=== PATIENT | female | born 1985 | race Caucasian/White ===

== ENCOUNTER 2016-09-14 09:10 | Emergency (ER) | payer SELFPAY ==
[~2016-09-14] VITALS: Ht 170.2 cm; Wt 114.7 kg
--- OUTSIDE RECORDS SUMMARY | 2016-09-14 09:14 | XMS REPORT | Continuity of Care Document ---
Author Author [facility] Organization [facility] Address Unknown Phone Unavailable Care Team Providers Care Wireless Architect Name Role Phone DILLON WALTER M.D. Primary Care Physician [phone] Advance Directives Directive Response Recorded Date/Time Patient Resuscitation Status Full Code 09/21/14 3:08am Problems No known problems or medical conditions. Medications Medication Dose Route Sig Days/Qty Instructions Order Date Discontinued Date Status [None] 11/11/12 Active Sulfamethoxazole-Trimethoprim 1 Tab PO TWICE A DAY 14 Qty 11/11/12 Discontinued Oxycodone/Acetaminophen 1 Tab PO Every 6 hours as needed 10 Qty for pain 11/11/12 11/27/13 Discontinued Ferrous Sulfate 325 Mg PO TWICE A DAY For Anemia 09/24/14 Active Ibuprofen 800 Mg PO Every 8 hours as needed For Pain 09/24/14 Active Oxycodone/Acetaminophen 1-2 Ea PO Q4-6HRPRN For Pain 50 Qty 09/24/14 Active Phenytoin Sodium 100 Mg PO BEDTIME For Not specified 09/24/14 Active Social History Social History Problem Response Recorded Date/Time Hx Alcohol Use Yes 09/23/2014 8:27am Smoking Status Current every day smoker 09/23/2014 11:28am Query Response Start Date Stop Date Smoking Status Current every day smoker Hospital Discharge Instructions No hospital discharge instructions. Plan of Care Discharge Date 09/24/14 11:40am Disposition 01 HOME, SELF-CARE Instructions/Education Provided OBG C-Sec Prescriptions See Medications Section Functional Status Query Response Date Recorded Toileting Ability/Staff Support Independ/No setup help September 24, 2014 8:37am Oral Care Ability/Staff Support Independ/No setup help September 24, 2014 8:37am Upper Body Dressing Ability/Staff Support Independ/No setup help September 24, 2014 8:37am Lower Body Dressing Ability/Staff Support Independ/No setup help September 24, 2014 8:37am Allergies, Adverse Reactions, Alerts Allergen Type Severity Reaction Status Last Updated Codeine Adverse Reaction Unknown Nausea/Vomiting Active 05/06/14 Morphine Allergy Unknown Active 05/06/14 Latex Allergy Mild ITCHES, VALDEZ, BREAKSOUT Active 05/06/14 Immunizations Name Given Type Hx Pneumococcal Vaccination Yes Historical Pneumonia Vaccine Received No Historical MMR 09/21/14 Administered Tdap 09/23/14 Administered pneumococcal polysaccharide PPV23 09/23/14 Administered Vital Signs Acute Vital Signs Vital Response Date/Time Blood Pressure 120/82 mm Hg Blood Pressure Mean 93 mm Hg Blood Pressure Mean 95 mm Hg Temperature (Fahrenheit) 97.8 degrees F (96.0 - 99.9) Temperature (Calculated Celsius) 36.86651 degrees C Temperature (Calculated Celsius) 36.75003 degrees C (36.4 - 37.5) Temperature (Fahrenheit) 97.9 degrees F (96.0 - 99.9) Temperature Source Oral Temperature Source Pulse Pulse Rate (adult) 99 bpm (60 - 100) Pulse Rate (adult) 89 bpm (60 - 100) Pulse Pulse Rate: ED 129 bpm Respiratory Rate 18 breaths per minute (10 - 20) Respiratory Rate 18 bpm (10 - 20) Height (Feet) 5 ft Height (Inches) 6.0 in. Weight (Pounds) 246.0 lbs Height 5 ft 6 in Weight 246 lb Body Mass Index 39.7 kg/m^2 Results Test Source Date Result Interp. Ref. Range Comments Alanine Aminotransferase (ALT/SGPT) September 21, 2014 11:49am 21 U/L N 5- 40 COMMENTS? draw with CBC Albumin September 21, 2014 11:49am 1.8 gm/dL L 3.2-5.0 COMMENTS? draw with CBC Albumin/Globulin Ratio September 21, 2014 11:49am 0.5 L 1.4-2.4 COMMENTS? draw with CBC Alkaline Phosphatase September 21, 2014 11:49am 150 U/L H 35-125 COMMENTS? draw with CBC Amphetamine Level September 20, 2014 5:30pm See separate report Amylase Level May 03, 2005 3:00pm 59 U/L N 37-127 COMMENTS? ROOM 4 Anion Gap September 21, 2014 11:49am 11.1 N 6-13 COMMENTS? draw with CBC Aspartate Amino Transf (AST/SGOT) September 21, 2014 11:49am 26 U/L N 5-40 COMMENTS? draw with CBC BUN/Creatinine Ratio September 21, 2014 11:49am 18.5 COMMENTS? draw with CBC Band Neutrophils September 20, 2014 11:05pm 5.0 % N 0-7 Barbiturates (GC/MS) September 20, 2014 5:30pm See separate report Basophils # (Auto) September 23, 2014 5:40am 0-0.2 Basophils (%) (Auto) September 23, 2014 5:40am 0-1 Basophils (Manual) September 23, 2014 5:40am 2.0 % H 0-1 Benzodiazepines (GC/MS) September 20, 2014 5:30pm See separate report Benzodiazepines Screen February 05, 2009 8:15pm Positive NEGATIVE COMMENTS ROOM 8 Bleeding Time September 14, 2014 1:00pm 7.0 MIN N 0-9 Blood Urea Nitrogen September 21, 2014 11:49am 12 mg/dL N 8-25 COMMENTS? draw with CBC Calcium Level September 21, 2014 11:49am 8.3 mg/dL N 8.2-10.6 COMMENTS? draw with CBC Carbon Dioxide Level September 21, 2014 11:49am 21 mEq/L L 22-34 COMMENTS? draw with CBC Carboxy THC (GC/MS) September 20, 2014 5:30pm See separate report Chlamydia/GC Amplified DNA February 05, 2009 8:21pm See separate report COMMENTS ROOM 8 Chloride Level September 21, 2014 11:49am 103 mEq/L N 98-116 COMMENTS? draw with CBC Cocaine & Metabolite Level September 20, 2014 5:30pm See separate report Cocaine Screen February 05, 2009 8:15pm Negative NEGATIVE COMMENTS ROOM 8 Creatinine September 21, 2014 11:49am 0.65 mg/dL L 0.9-1.6 COMMENTS? draw with CBC Drug Screen (T) February 05, 2009 8:15pm Positive NEGATIVE COMMENTS ROOM 8 Drug Screen Company Name September 20, 2014 5:30pm See separate report Drug Screen Social Security Number September 20, 2014 5:30pm See separate report Eosinophils # (Auto) September 23, 2014 5:40am 0-0.8 Eosinophils (%) (Auto) September 23, 2014 5:40am 0-7.0 Eosinophils (Manual) September 23, 2014 5:40am 2.0 % N 0-7.0 Fasting Glucose September 14, 2014 1:00pm 0 102 Globulin September 21, 2014 11:49am 3.8 gm/dL H 2.0-3.0 COMMENTS? draw with CBC Glomerular Filtration Rate Calc September 21, 2014 11:49am > 60.00 mL/min MULTIPLY RESULT BY 1.210 IF THE PATIENT IS -AMERICANUnits are mL/min/ 1.73 m2 > 60 Normal kidney function 30-59 Moderately decreased kidney function 15-29 Severely decreased kidney function <15 End-stage kidney failure Glucose 1 Hour September 14, 2014 1:00pm 5100 126 Hematocrit September 24, 2014 6:45am 23.2 % L 38.0-47.0 Hemoglobin September 24, 2014 6:45am 7.9 g/dL L 12.0-16.0 Hepatitis C RNA (DNA PCR) September 14, 2014 1:00pm 314266 IU/mL () Hepatitis C RNA (PCR) log10 September 14, 2014 1:00pm 5.5 () This test is for monitoring of HCV positive patients only andshould not be used as a screening test for HCV infection. Hepatitis C RNA performed at [facility], [address] [place] [id number] Lithographed Plate Inspector Quinton Charles, DO Heroin Level September 20, 2014 5:30pm See separate report Human Chorionic Gonadotropin, Qual March 18, 2008 7:47pm Negative NEGATIVE COMMENTS? Immature Blood Cells February 05, 2009 8:13pm 0.2 X10.e3/U N 0-0.4 COMMENTS PLEASE DRAW Immature Granulocyte # (Auto) September 23, 2014 5:40am 0-0.40 Immature Granulocyte % (Auto) September 23, 2014 5:40am 0-0.5 Lab Scanned Report September 23, 2014 8:21am REFERENCE LAB REPORT Lipase May 03, 2005 3:00pm 16 U/L N 8-57 COMMENTS? ROOM 4 Lymphocytes # (Auto) September 23, 2014 5:40am 0.9-5.2 Lymphocytes (%) (Auto) September 23, 2014 5:40am 16.0-44.0 Lymphocytes (Manual) September 23, 2014 5:40am 19.0 % L 21.0-51.0 Mean Corpuscular Hemoglobin September 23, 2014 5:40am 28.5 pg N 26.0-33.0 Mean Corpuscular Hemoglobin Concent September 23, 2014 5:40am 33.2 g/dL N 31.0-36.0 Mean Corpuscular Volume September 23, 2014 5:40am 85.8 fL N 82.0-100.0 Mean Platelet Volume September 23, 2014 5:40am 9.7 fL N 7.0-11.0 Metamyelocytes September 20, 2014 11:05pm 1.0 % Monocytes # (Auto) September 23, 2014 5:40am 0.16-1.0 Monocytes (%) (Auto) September 23, 2014 5:40am 2.0-9.0 Monocytes (Manual) September 23, 2014 5:40am 3.0 % N 2.0-9.0 Neutrophils September 23, 2014 5:40am 74.0 % N 42.0-75.0 Neutrophils # (Auto) September 23, 2014 5:40am 1.9-8.0 Neutrophils (%) (Auto) September 23, 2014 5:40am 42.0-75.0 Nucleated Red Blood Cells # September 23, 2014 5:40am 0.00 K/uL N 0.0-0.012 Nucleated Red Blood Cells % September 23, 2014 5:40am 0-0 Opiates (GC/MS) September 20, 2014 5:30pm See separate report Phencyclidine (PCP) Level September 20, 2014 5:30pm See separate report Platelet Count September 23, 2014 5:40am 325 K/uL N 130-400 Platelet Estimate September 23, 2014 5:40am Normal NORMAL Potassium Level September 21, 2014 11:49am 4.1 mEq/L N 3.5-5.1 COMMENTS? draw with CBC RDW Standard Deviation September 23, 2014 5:40am 43.8 fL N 36.4-46.3 Random Glucose September 21, 2014 11:49am 90 mg/dL N 65-115 COMMENTS? draw with CBC Red Blood Count September 23, 2014 5:40am 2.74 M/uL L 4.20-5.40 Red Cell Distribution Width September 23, 2014 5:40am 14.1 % N 11.5-14.5 Sodium Level September 21, 2014 11:49am 131 mEq/L L 133-145 COMMENTS? draw with CBC Total Bilirubin September 21, 2014 11:49am 0.7 mg/dL N 0.1-1.3 COMMENTS? draw with CBC Total Protein September 21, 2014 11:49am 5.6 gm/dL L 6.0-8.4 COMMENTS? draw with CBC Toxic Vacuolation September 20, 2014 11:05pm Ur Tetrahydrocannabinol (THC) Scrn September 20, 2014 11:00pm Negative NEGATIVE HAS SPECIMEN BEEN OBTAINED/COLLECTED? Y Ur Tricyclic Antidepressants Screen September 20, 2014 11:00pm Positive NEGATIVE HAS SPECIMEN BEEN OBTAINED/COLLECTED? Y Urine Amorphous Sediment April 02, 2006 10:00pm Trace COMMENTS? RM 6 Urine Amphetamines Screen September 20, 2014 11:00pm Negative NEGATIVE HAS SPECIMEN BEEN OBTAINED/COLLECTED? Y Urine Appearance September 20, 2014 11:00pm Clear HAS SPECIMEN BEEN OBTAINED/COLLECTED? Y Urine Bacteria September 20, 2014 6:30pm Trace /hpf H NONE SOURCE: URINE, CLEAN CATCHHAS SPECIMEN BEEN OBTAINED/COLLECTED? Y Urine Barbiturates February 05, 2009 8:15pm Positive NEGATIVE COMMENTS ROOM 8 Urine Barbiturates Screen September 20, 2014 11:00pm Negative NEGATIVE HAS SPECIMEN BEEN OBTAINED/COLLECTED? Y Urine Benzodiazepines Screen September 20, 2014 11:00pm Positive NEGATIVE HAS SPECIMEN BEEN OBTAINED/COLLECTED? Y Urine Bilirubin September 20, 2014 11:00pm Negative NEGATIVE HAS SPECIMEN BEEN OBTAINED/COLLECTED? Y Urine Cannabinoids February 05, 2009 8:15pm Negative NEGATIVE COMMENTS ROOM 8 Urine Cocaine Screen September 20, 2014 11:00pm Negative NEGATIVE HAS SPECIMEN BEEN OBTAINED/COLLECTED? Y Urine Color September 20, 2014 11:00pm Yellow HAS SPECIMEN BEEN OBTAINED/COLLECTED? Y Urine Drug Screen Confirmation February 05, 2009 12:00am See separate report Urine Drug Screen Other September 20, 2014 5:30pm See separate report Urine Drug Screen Reason September 20, 2014 5:30pm See separate report Urine Epithelial Cells September 20, 2014 6:30pm Few /lpf SOURCE: URINE , CLEAN CATCHHAS SPECIMEN BEEN OBTAINED/COLLECTED? Y Urine Glucose (UA) September 20, 2014 11:00pm Negative NEGATIVE HAS SPECIMEN BEEN OBTAINED/COLLECTED? Y Urine Human Chorionic Gonadotropin October 31, 2009 1:30pm Positive NEG ROOM/COMMENTS ROOM 8 Urine Ketones September 20, 2014 11:00pm Negative NEGATIVE HAS SPECIMEN BEEN OBTAINED/COLLECTED? Y Urine Leukocyte Esterase September 20, 2014 11:00pm Negative NEGATIVE HAS SPECIMEN BEEN OBTAINED/COLLECTED? Y Urine Methadone Screen September 20, 2014 11:00pm Negative NEGATIVE HAS SPECIMEN BEEN OBTAINED/COLLECTED? Y Urine Methamphetamines Screen September 20, 2014 11:00pm Negative NEGATIVE HAS SPECIMEN BEEN OBTAINED/COLLECTED? Y Urine Mucus April 02, 2006 10:00pm 1+ NEGATIVE COMMENTS?RM 6 Urine Nitrate September 20, 2014 11:00pm Negative NEGATIVE HAS SPECIMEN BEEN OBTAINED/COLLECTED? Y Urine Occult Blood September 20, 2014 11:00pm Negative NEGATIVE HAS SPECIMEN BEEN OBTAINED/COLLECTED? Y Urine Opiates Screen September 20, 2014 11:00pm Negative NEGATIVE HAS SPECIMEN BEEN OBTAINED/COLLECTED? Y Urine Phencyclidine Screen September 20, 2014 11:00pm Negative NEGATIVE HAS SPECIMEN BEEN OBTAINED/COLLECTED? Y Urine Propoxyphene Screen September 20, 2014 11:00pm Negative NEGATIVE HAS SPECIMEN BEEN OBTAINED/COLLECTED? Y Urine Protein September 20, 2014 11:00pm Negative NEGATIVE HAS SPECIMEN BEEN OBTAINED/COLLECTED? Y Urine RBC September 20, 2014 6:30pm 0-1 /hpf NONE SOURCE: URINE, CLEAN CATCHHAS SPECIMEN BEEN OBTAINED/COLLECTED? Y Urine Specific [place] September 20, 2014 11:00pm 1.020 1.005-1.030 HAS SPECIMEN BEEN OBTAINED/COLLECTED? Y Urine Urobilinogen September 20, 2014 11:00pm 0.2 E.U./dL 0.2-1.0 HAS SPECIMEN BEEN OBTAINED/COLLECTED? Y Urine WBC September 20, 2014 6:30pm 1-3 /hpf NONE SOURCE: URINE, CLEAN CATCHHAS SPECIMEN BEEN OBTAINED/COLLECTED? Y Urine WBC Clumps December 29, 2005 1:15pm None NONE HAS SPECIMEN BEEN OBTAINED/COLLECTED? Y Urine pH September 20, 2014 11:00pm 6.5 4.5-8.0 HAS SPECIMEN BEEN OBTAINED/COLLECTED? Y White Blood Count September 23, 2014 5:40am 13.4 K/uL DH 5.0-10.0 Wound Culture Other May 13, 2009 10:50am Methicillin Resistant S Aureus Influenza Virus A & B Rapid Smear Nasopharyngeal July 07, 2005 2:09pm Urine Culture Urine,Random July 21, 2014 2:55pm Wound Culture Back December 05, 2009 12:50pm Methicillin Resistant S Aureus Procedures Procedure Status Date Provider(s) completed 09/20/14 BEHZAD RICNON M.D. Encounters Encounter [facility] 09/20/14 5:52pm
--- OUTSIDE RECORDS SUMMARY | 2016-09-14 09:14 | XMS REPORT ---
Author Author Victoria Gonzalez Organization [employer] Address Unknown Phone Unavailable Care Team Providers Care Personal Protection Specialist Name Role Phone Victoria Gonzalez CP Unavailable Allergies No Known Allergies Problems Problem Type Condition ICD-9 Code Onset Dates Condition Status Assessment Epilepsy 345.90 Active Problem Depressed 311 Active Problem Anxiety 300.00 Active Problem Epilepsy 345.90 Active Problem Hepatitis C 070.70 Active Assessment Hepatitis C 070.70 Active Problem Tobacco use 305.1 Active Problem Obesity 278.00 Active Medications Medication Code System Code Instructions Start Date End Date Status Dosage Phenytoin Sodium Extended [facility] [address]-53 100 mg Orally at HS 7 capsules Results No Known Results Summary Purpose [employer] Submission
--- OUTSIDE RECORDS SUMMARY | 2016-09-14 09:14 | XMS REPORT ---
Author Author Victoria Gonzalez [facility] [employer] Address Unknown Phone Unavailable Care Team Providers Care Scallop Cutter Name Role Phone Victoria Gonzalez CP Unavailable Allergies, Adverse Reactions, Alerts Substance Reaction Event Type N.K.D.A. Info Not Available Non Drug Allergy Problems Problem Type Condition ICD-9 Code Onset Dates Condition Status Assessment Epilepsy 345.90 Active Assessment Obesity 278.00 Active Assessment Anxiety 300.00 Active Assessment Athletes foot 110.4 Active Assessment Hepatitis C 070.70 Active Problem Depressed 311 Active Problem Anxiety 300.00 Active Problem Epilepsy 345.90 Active Problem Hepatitis C 070.70 Active Assessment Tobacco use 305.1 Active Problem Tobacco use 305.1 Active Problem Obesity 278.00 Active Medications Medication Code System Code Instructions Start Date End Date Status Dosage Phenytoin Sodium Extended [facility] [address]-66 100 mg Orally at HS 7 capsules Colace [facility] [address]-07 100 MG Orally not defined Lomotil [facility] [address]-51 2.5-0.025 MG Orally Four times a day December 02, 2014 1 tablet as needed Retin-A Micro Pump [facility] [address]-12 0.08 % Externally Once a day December 09, 2014 1 application to affected area in the evening Miconazole Nitrate [facility] [address]-65 2 % Externally Twice a day December 09, 2014 1 application to affected area Ferrous Sulfate [facility] [address]-39 Orally Twice a day not defined Ibuprofen [facility] [address]-94 200 MG Orally not defined Triamcinolone Acetonide [facility] [address]-56 0.1 % not defined Depo-Provera [facility] [address]-62 150 MG/ML Intramuscular December 02, 2014 1 ml Celexa [facility] [address]-29 40 MG Orally Once a day 1 tablet Nicotrol [facility] [address]-18 10 MG Inhalation 16 time(s) a day December 09, 2014 1 puff as needed HydrOXYzine Pamoate [facility] [address]-64 25 MG Orally every 8 hrs PRN December 1 capsule as needed Nicotine [facility] [address]-40 21 MG/24HR Transdermal Once a day December 02, 2014 1 patch to skin PrePLUS [facility] [address]-77 27-1 MG Orally daily not defined Procedures Procedure Coding System Code Date Office Visit, Est Pt., Level 3 CPT-4 54420 December 09, 2014 Vital Signs Date/Time: December 09, 2014 Blood Pressure Systolic 118 mm Hg Cardiac Monitoring Heart Rate 76 /min Temperature 98.4 F BMI 39.65 Index Weight 253.2 lbs Height 67 in Blood Pressure Diastolic 70 mm Hg Respiratory Rate 16 /min Results No Known Results Summary Purpose [employer]Works Submission
--- OUTSIDE RECORDS SUMMARY | 2016-09-14 09:15 | XMS REPORT ---
Author Felicity Thomas [facility] eClinical[employer] Address Unknown Phone Unavailable Care Team Providers Care Psychiatric Therapist Name Role Phone Felicity Perez CP Unavailable Allergies No Known Allergies Problems Problem Type Condition ICD-9 Code Onset Dates Condition Status Assessment Lumbago 724.2 Active Problem Health examination of defined subpopulation V70.5 Active Problem Unspecified local infection of skin and subcutaneous tissue 686.9 Active Problem Other forms of epilepsy and recurrent seizures, without mention of intractable epilepsy 345.80 Active Assessment Other forms of epilepsy and recurrent seizures, without mention of intractable epilepsy 345.80 Active Assessment Unspecified local infection of skin and subcutaneous tissue 686.9 Active Problem Lumbago 724.2 Active Assessment Health examination of defined subpopulation V70.5 Active Medications Medication Code System Code Instructions Start Date End Date Status Dosage Dilantin [facility] [address]-51 100 MG Orally three times a day Active 1 capsule Paxil [facility] [address]-75 20 MG Orally Once a day Active 1 tablet in the morning Claritin [facility] [address]-99 10 MG Orally Once a day Active 1 tablet Procedures Procedure Coding System Code Date COMPLETE CBC W/AUTO DIFF WBC CPT-4 64729 Apr 02, 2013 Office Visit, Est Pt., Level 3 CPT-4 99137 Apr 02, 2013 ASSAY OF PHENYTOIN, TOTAL CPT-4 84842 Apr 02, 2013 Vital Signs Date/Time: Apr 02, 2013 Height 66 inches Blood Pressure Diastolic 70 mm Hg Blood Pressure Systolic 101 mm Hg Temperature 97.9 F Cardiac Monitoring Heart Rate 96 Beats per Minute Results CBC (INCLUDES DIFF/PLT) NEUTROPHILS(- %) 57.8 ABSOLUTE BASOPHILS(-0-200 cells/uL) 15 MONOCYTES(- %) 5.6 LYMPHOCYTES(- %) 33.7 PLATELET COUNT(-140-400 Thousand/uL) 289 BASOPHILS(- %) 0.2 RDW(-11.0-15.0 %) 13.3 EOSINOPHILS(- %) 2.7 MCHC(-32.0-36.0 g/dL) 33.9 MCH(-27.0-33.0 pg) 30.4 MCV(-80.0-100.0 fL) 89.5 ABSOLUTE LYMPHOCYTES(-850-3900 cells/uL) 2561 ABSOLUTE NEUTROPHILS(-5619-3164 cells/uL) 4393 ABSOLUTE EOSINOPHILS(-15-500 cells/uL) 205 ABSOLUTE MONOCYTES(-200-950 cells/uL) 426 WHITE BLOOD CELL COUNT(-3.8-10.8 Thousand/uL) 7.6 RED BLOOD CELL COUNT(-3.80-5.10 Million/uL) 3.99 HEMOGLOBIN(-11.7-15.5 g/dL) 12.1 HEMATOCRIT(-35.0-45.0 %) 35.7 PHENYTOIN PHENYTOIN(-10.0-20.0 mg/L ) <2.5 Summary Purpose eClinicalWorks Submission
--- OUTSIDE RECORDS SUMMARY | 2016-09-14 09:15 | XMS REPORT | Continuity of Care Document ---
Author Author Dina Pierre [facility] Dina Pierre [facility] Address Unknown Phone Unavailable Care Team Providers Care Brim Stretcher Name Role Phone DILLON WALTER M.D. Primary Care Physician [phone] Insurance Providers Guarantor Kaylee Torres Address [address] [place] [address] Email [email or web address] [facility] Policy Number [id number] Subscriber's Name Kaylee Torres Relationship 01 Self / Same As Patient Effective Date 15 Chief Complaint and Reason for Visit Chief Complaint Ankle Injury Reason for Visit Crushing injury of left foot and ankle Problems Active Problems Medical Problem Onset Date Status Crushing injury of left foot and ankle Unknown Acute Medications Current Home Medications Medication Dose Units Route Directions Days Qty Instructions Start Date Citalopram Hydrobromide (Celexa) 40 Mg Tab 40 Mg Oral Daily 01/07 Hydrocodone-Acetaminophen ([place] 5/325) 1 Tab Tab 1-2 Tab Oral Q4-6H as needed for Pain 15 Tablet 01/08/16 None 11/11/12 Norgestimate-Ethinyl Estradiol (Ortho Tri-Cyclen) Cyclen Tab 1 Ea Oral Daily 01/08/16 Phenytoin Sodium (Dilantin Extended Release) 100 Mg Cap 700 Mg Oral Bedtime for Not Specified 09/24/14 Past Home Medications Medication Directions Ordered Status Oxycodone/Acetaminophen (Percocet 5/325) 1 Tab/1 Un Tab, 1 Tab Oral Every 6 Hours As Needed 11/11/12 Discontinued Sulfamethoxazole-Trimethoprim (Bactrim Ds) 1 Tab Tab, 1 Tab Oral Twice A Day 11/11/12 Discontinued Social History Social History Problem Response Recorded Date/Time Onset Date Status Hx Alcohol Use Yes 09/23/2014 8:27am Not Applicable Not Applicable Smoking Status Current every day smoker 01/08/2016 2:22pm Not Applicable Not Applicable Query Response Start Date Stop Date Smoking Status Current every day smoker Hospital Discharge Instructions No hospital discharge instructions. Plan of Care Discharge Date 01/08/16 3:49pm Disposition 01 HOME, SELF-CARE Condition at Discharge Stable Instructions/Education Provided Crush Injury Prescriptions See Medication Section Referrals DILLON WALTER M.D. Address: [address] [place], [place] [id number] Additional Instructions/Education 1. Follow up with your doctor in 2-3 days. 2. Wear [place] bandage as needed for discomfort/support. Use crutches as needed 3. Use Motrin as needed for pain. May also use [place] as needed for pain. 4. Return to ER if worsening pain, or other concerns. Functional Status No functional status results. Allergies, Adverse Reactions, Alerts Allergen Type Severity Reaction Status Last Updated Codeine ([id number]) Adverse Reaction Unknown Nausea/Vomiting Active 08/15 Morphine ([id number]) Allergy Unknown Active 10/28/14 Latex ([id number]) Allergy Mild ITCHES, VALDEZ, BREAKSOUT Active 05/06/14 Immunizations Query Response on File Recorded Date/Time Hx Pneumococcal Vaccination Yes 09/23/14 11:45am Vital Signs Acute Vital Signs Vital Response Date/Time Blood Pressure 135/82 mm Hg 01/08/2016 3:48pm Blood Pressure Mean 93 mm Hg 09/21/2014 6:00am Blood Pressure Mean 99 mm Hg 01/08/2016 3:48pm Temperature (Fahrenheit) 98.3 degrees F (96.0 - 99.9) 01/08/2016 2:16pm Temperature (Calculated Celsius) 36.39488 degrees C 01/08/2016 2:16pm Temperature (Calculated Celsius) 36.88390 degrees C (36.4 - 37.5) 09/21/2014 6:00am Temperature (Fahrenheit) 97.9 degrees F (96.0 - 99.9) 09/21/2014 6:00am Temperature Source Oral 09/24/2014 8:41am Temperature Source Oral 01/08/2016 2:16pm Pulse Pulse Rate (adult) 99 bpm (60 - 100) 09/24/2014 8:41am Pulse Rate (adult) 89 bpm (60 - 100) 09/21/2014 6:00am Pulse Rate: ED 86 bpm 01/08/2016 3:48pm Respiratory Rate 18 breaths per minute (10 - 20) 09/24/2014 8:41am Respiratory Rate 18 bpm (10 - 20) 09/21/2014 6:00am Height (Feet) 5 ft 01/08/2016 2:16pm Height (Inches) 6.0 in. 01/08/2016 2:16pm Weight (Pounds) 200.0 lbs 01/08/2016 2:16pm Height 5 ft 6 in 01/08/2016 2:16pm Weight 200 lb 01/08/2016 2:16pm Body Mass Index 32.3 kg/m^2 01/08/2016 2:16pm Ambulatory Vital Signs Vital Response Date/Time Height 5 ft 7 in 01/14/2015 3:52pm Weight 259 lbs 01/14/2015 3:52pm Temperature, Oral 97.7 degrees F 01/14/2015 3:52pm Blood Pressure, Sitting, Right Arm 121/65 mm Hg 01/14/2015 3:52pm Pulse Rate 82 bpm 01/14/2015 3:52pm Respiration Rate 16 bpm 01/14/2015 3:52pm Body Surface Area 2.41 m2 01/14/2015 3:52pm Body Mass Index 40.6 kg/m2 01/14/2015 3:52pm Pulse Oximetry Pulse Oximetry 01/14/2015 3:52pm Results Laboratory Results Test Name Result Units Flags Reference Collection Date/Time Result Date/ Time Comments Bleeding Time 7.0 MIN 0-9 09/14/2014 1:00pm 09/14/2014 2:42pm Fasting Glucose 102 mg/dL 65-115 09/14/2014 1:00pm 09/14/2014 1:27pm Glucose 1 Hour 126 mg/dL 09/14/2014 2:25pm 09/14/2014 3:22pm Hepatitis C RNA (DNA PCR) [id number] IU/mL () 09/14/2014 1:00pm 09/15/2014 4:41pm Hepatitis C RNA (PCR) log10 5.5 () 09/14/2014 1:00pm 09/15/2014 4: 41pm This test is for monitoring of HCV positive patients only and should not be used as a screening test for HCV infection. Hepatitis C RNA performed at [facility], [facility] [place] [address] Measurement And Verification Engineer Quinton Beverly W, DO Urine RBC 0-1 /hpf NONE 09/20/2014 6:30pm 09/20/2014 7:03pm Urine WBC 1-3 /hpf NONE 09/20/2014 6:30pm 09/20/2014 7:03pm Urine Epithelial Cells FEW /lpf 09/20/2014 6:30pm 09/20/2014 7:03pm Urine Bacteria TRACE /hpf H NONE 09/20/2014 6:30pm 09/20/2014 7:03pm Amphetamine Level SEE SEPARATE REPORT 09/20/2014 5:30pm 09/21/2014 6:40am Cocaine & Metabolite Level SEE SEPARATE REPORT 09/20/2014 5:30pm 6:40am Carboxy THC (GC/MS) SEE SEPARATE REPORT 09/20/2014 5:30pm 2014 6:40am Opiates (GC/MS) SEE SEPARATE REPORT 09/20/2014 5:30pm 09/21/2014 6: 40am Heroin Level SEE SEPARATE REPORT 09/20/2014 5:30pm 09/21/2014 6: 40am Phencyclidine (PCP) Level SEE SEPARATE REPORT 09/20/2014 5:30pm 6:40am Benzodiazepines (GC/MS) SEE SEPARATE REPORT 09/20/2014 5:30pm 09/21 6:40am Barbiturates (GC/MS) SEE SEPARATE REPORT 09/20/2014 5:30pm 2014 6:40am Urine Drug Screen Other SEE SEPARATE REPORT 09/20/2014 5:30pm 09/21 6:40am Urine Drug Screen Other SEE SEPARATE REPORT 09/20/2014 5:30pm 09/21 6:40am Drug Screen Company Name SEE SEPARATE REPORT 09/20/2014 5:30pm 6:40am Urine Drug Screen Reason SEE SEPARATE REPORT 09/20/2014 5:30pm 6:40am Drug Screen Social Security Number SEE SEPARATE REPORT 09/20/2014 5: 30pm 09/21/2014 6:40am White Blood Count 13.4 K/uL # H 5.0-10.0 09/23/2014 5:40am 09/23/2014 6: 21am Red Blood Count 2.74 M/uL L 4.20-5.40 09/23/2014 5:40am 09/23/2014 6: 21am Hemoglobin 7.9 g/dL L 12.0-16.0 09/24/2014 6:45am 09/24/2014 7:30am Hematocrit 23.2 % L 38.0-47.0 09/24/2014 6:45am 09/24/2014 7:30am Mean Corpuscular Volume 85.8 fL 82.0-100.0 09/23/2014 5:40am 2014 6:21am Mean Corpuscular Hemoglobin 28.5 pg 26.0-33.0 09/23/2014 5:40am 2014 6:21am Mean Corpuscular Hemoglobin Concent 33.2 g/dL 31.0-36.0 09/23/2014 5: 40am 09/23/2014 6:21am Red Cell Distribution Width 14.1 % 11.5-14.5 09/23/2014 5:40am 2014 6:21am RDW Standard Deviation 43.8 fL 36.4-46.3 09/23/2014 5:40am 09/23/2014 6 :21am Platelet Count 325 K/uL 130-400 09/23/2014 5:40am 09/23/2014 6:21am Mean Platelet Volume 9.7 fL 7.0-11.0 09/23/2014 5:40am 09/23/2014 6: 21am Neutrophils (%) (Auto) 79.5 % H 42.0-75.0 09/21/2014 11:49am 09/21/2014 12:00pm Lymphocytes (%) (Auto) 13.9 % L 16.0-44.0 09/21/2014 11:49am 09/21/2014 12:00pm Monocytes (%) (Auto) 4.7 % 2.0-9.0 09/21/2014 11:49am 09/21/2014 12: 00pm Eosinophils (%) (Auto) 0.5 % 0-7.0 09/21/2014 11:49am 09/21/2014 12: 00pm Basophils (%) (Auto) 0.3 % 0-1 09/21/2014 11:49am 09/21/2014 12:00pm Immature Granulocyte % (Auto) 1.1 % H 0-0.5 09/21/2014 11:49am 2014 12:00pm Nucleated Red Blood Cells % 0.0 /100WBC 0-0 09/21/2014 11:49am 2014 12:00pm Neutrophils # (Auto) 20.7 K/uL H 1.9-8.0 09/21/2014 11:49am 09/21/2014 12:00pm Lymphocytes # (Auto) 3.6 K/uL 0.9-5.2 09/21/2014 11:49am 09/21/2014 12: 00pm Monocytes # (Auto) 1.2 K/uL H 0.16-1.0 09/21/2014 11:49am 09/21/2014 12: 00pm Eosinophils # (Auto) 0.1 K/uL 0-0.8 09/21/2014 11:49am 09/21/2014 12: 00pm Basophils # (Auto) 0.1 K/uL 0-0.2 09/21/2014 11:49am 09/21/2014 12: 00pm Immature Granulocyte # (Auto) 0.29 K/uL 0-0.40 09/21/2014 11:49am 09/21 12:00pm Nucleated Red Blood Cells # 0.00 K/uL 0.0-0.012 09/23/2014 5:40am 09/23 6:21am Neutrophils 74.0 % 42.0-75.0 09/23/2014 5:40am 09/23/2014 7:09am Band Neutrophils 5.0 % 0-7 09/20/2014 11:05pm 09/20/2014 11:47pm Lymphocytes (Manual) 19.0 % L 21.0-51.0 09/23/2014 5:40am 09/23/2014 7: 09am Monocytes (Manual) 3.0 % 2.0-9.0 09/23/2014 5:40am 09/23/2014 7:09am Eosinophils (Manual) 2.0 % 0-7.0 09/23/2014 5:40am 09/23/2014 7:09am Basophils (Manual) 2.0 % H 0-1 09/23/2014 5:40am 09/23/2014 7:09am Metamyelocytes 1.0 % 09/20/2014 11:05pm 09/20/2014 11:47pm Platelet Estimate NORMAL NORMAL 09/23/2014 5:40am 09/23/2014 7:09am Urine Color YELLOW 09/20/2014 11:00pm 09/20/2014 11:43pm Urine Appearance CLEAR 09/20/2014 11:00pm 09/20/2014 11:43pm Urine Glucose (UA) NEGATIVE NEGATIVE 09/20/2014 11:00pm 09/20/2014 11 :43pm Urine Bilirubin NEGATIVE NEGATIVE 09/20/2014 11:00pm 09/20/2014 11: 43pm Urine Ketones NEGATIVE NEGATIVE 09/20/2014 11:00pm 09/20/2014 11: 43pm Urine Specific [place] 1.020 1.005-1.030 09/20/2014 11:00pm 2014 11:43pm Urine Occult Blood NEGATIVE NEGATIVE 09/20/2014 11:00pm 09/20/2014 11 :43pm Urine pH 6.5 4.5-8.0 09/20/2014 11:00pm 09/20/2014 11:43pm Urine Protein NEGATIVE NEGATIVE 09/20/2014 11:00pm 09/20/2014 11: 43pm Urine Urobilinogen 0.2 E.U./dL 0.2-1.0 09/20/2014 11:00pm 09/20/2014 11 :43pm Urine Nitrate NEGATIVE NEGATIVE 09/20/2014 11:00pm 09/20/2014 11: 43pm Urine Leukocyte Esterase NEGATIVE NEGATIVE 09/20/2014 11:00pm 2014 11:43pm Random Glucose 90 mg/dL 65-115 09/21/2014 11:49am 09/21/2014 12:23pm Blood Urea Nitrogen 12 mg/dL 8-25 09/21/2014 11:49am 09/21/2014 12: 23pm Creatinine 0.65 mg/dL L 0.9-1.6 09/21/2014 11:4909/21/2014 12:23pm Glomerular Filtration Rate Calc > 60.00 mL/min 09/21/2014 11:49 12:23pm MULTIPLY RESULT BY 1.210 IF THE PATIENT IS -SERBIAN Units are mL/min/1.73 m2 > 60 Normal kidney function 30-59 Moderately decreased kidney function 15-29 Severely decreased kidney function <15 End-stage kidney failure BUN/Creatinine Ratio 18.5 09/21/2014 11:4909/21/2014 12:23pm Sodium Level 131 mEq/L L 133-145 09/21/2014 11:4909/21/2014 12:23pm Potassium Level 4.1 mEq/L 3.5-5.1 09/21/2014 11:4909/21/2014 12: 23pm Chloride Level 103 mEq/L 98-116 09/21/2014 11:4909/21/2014 12:23pm Carbon Dioxide Level 21 mEq/L L 22-34 09/21/2014 11:4909/21/2014 12: 23pm Anion Gap 11.1 6-13 09/21/2014 11:4909/21/2014 12:23pm Calcium Level 8.3 mg/dL 8.2-10.6 09/21/2014 11:4909/21/2014 12:23pm Total Protein 5.6 gm/dL L 6.0-8.4 09/21/2014 11:4909/21/2014 12:23pm Albumin 1.8 gm/dL L 3.2-5.0 09/21/2014 11:4909/21/2014 12:23pm Globulin 3.8 gm/dL H 2.0-3.0 09/21/2014 11:4909/21/2014 12:23pm Albumin/Globulin Ratio 0.5 L 1.4-2.4 09/21/2014 11:4909/21/2014 12: 23pm Total Bilirubin 0.7 mg/dL 0.1-1.3 09/21/2014 11:4909/21/2014 12: 23pm Alkaline Phosphatase 150 U/L H 35-125 09/21/2014 11:4909/21/2014 12: 23pm Aspartate Amino Transf (AST/SGOT) 26 U/L 5-40 09/21/2014 11:49am 2014 12:23pm Alanine Aminotransferase (ALT/SGPT) 21 U/L 540 09/21/2014 11:49am 12:23pm Urine Amphetamines Screen Negative NEGATIVE 09/20/2014 11:00pm 2014 11:48pm Urine Methamphetamines Screen Negative NEGATIVE 09/20/2014 11:00pm 11:48pm Urine Barbiturates Screen Negative NEGATIVE 09/20/2014 11:00pm 2014 11:48pm Urine Benzodiazepines Screen POSITIVE NEGATIVE 09/20/2014 11:00pm 11:48pm Urine Cocaine Screen Negative NEGATIVE 09/20/2014 11:00pm 09/20/2014 11:48pm Urine Methadone Screen Negative NEGATIVE 09/20/2014 11:00pm 2014 11:48pm Urine Opiates Screen Negative NEGATIVE 09/20/2014 11:00pm 09/20/2014 11:48pm Urine Phencyclidine Screen Negative NEGATIVE 09/20/2014 11:00pm 09/20 11:48pm Urine Propoxyphene Screen Negative NEGATIVE 09/20/2014 11:00pm 2014 11:48pm Ur Tetrahydrocannabinol (THC) Scrn Negative NEGATIVE 09/20/2014 11: 00pm 09/20/2014 11:48pm Ur Tricyclic Antidepressants Screen POSITIVE NEGATIVE 09/20/2014 11: 00pm 09/20/2014 11:48pm Hepatitis C Genotype 2 () 09/23/2014 5:40am 09/25/2014 8:42pm Reference Range: Undetected ADDITIONAL INFORMATION This test was performed using the [employer] RealTime HCV Genotype II assay ([employer] [place], [place]). Test Performed by: [place] [address] Billing Representative: Justice Carolina II, M.D., Ph.D. Hepatitis C Genotype performed at [facility], [address] [place] [address] Measurement And Verification Engineer Pipo Robison MD Methicillin-Resist S.aureus DNA PCR POSITIVE H NEGATIVE 09/29/2014 2: 00pm 09/30/2014 1:26pm Staphylococcus aureus (PCR)(LAB) POSITIVE H NEGATIVE 09/29/2014 2:00pm 09/30/2014 1:26pm Microbiology Results Procedure Source Organism/Result Collection Date/Time Result Date/Time Result Status Wound Culture Abdomen STAPHYLOCOCCUS AUREUS 09/29/2014 2:00pm 10/03/2014 10:00am Final Procedures No known history of procedures. Encounters Encounter Location Arrival/Admit Date Discharge/Depart Date Attending Provider Departed Emergency Room [facility] 01/08/16 2:15pm 3:49pm JEANIE RUBIO M.D. Office Visit RAFIQ ABDI 01/14/15 3:00pm RAFIQ ABDI M.D. Registered Practice [facility] 01/14/15 3:00pm RAFIQ ABDI M.D. Registered Referred [facility] 09/30/14 11:22am OTHER, DOCTOR Discharged Inpatient [facility] 09/20/14 10:53pm 09/24/14 11:40am BEHZAD RINCON M.D. Discharged Inpatient (obs) [facility] 09/20/14 5:52pm 7:30pm BEHZAD RINCON M.D. Registered Referred [facility] 09/14/14 12:52pm BEHZAD RINCON M.D. Registered Referred [facility] 09/01/14 2:16pm BEHZAD RINCON M.D. Registered Referred [facility] 07/27/14 3:01pm DILLON WALTER M.D. Registered Referred [facility] 07/22/14 1:27pm DILLON WALTER M.D. Registered Referred [facility] 02/27/14 10:17am KHUSHI NAYAK P.A-C Recent Diagnosis
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
--- OUTSIDE RECORDS SUMMARY | 2016-09-14 09:15 | XMS REPORT ---
Author Author Victoria Gonzalez [facility] eClinicalWorks Address Unknown Phone Unavailable Care Team Providers Care Fondant Cooker Name Role Phone Victoria Gonzalez CP Unavailable Allergies, Adverse Reactions, Alerts Substance Reaction Event Type N.K.D.A. Info Not Available Non Drug Allergy Problems Problem Type Condition ICD-9 Code Onset Dates Condition Status Assessment Tobacco use 305.1 Active Assessment Depressed 311 Active Assessment Anxiety 300.00 Active Problem Depressed 311 Active Problem Anxiety 300.00 Active Problem Epilepsy 345.90 Active Problem Hepatitis C 070.70 Active Assessment Epilepsy 345.90 Active Problem Tobacco use 305.1 Active Problem Obesity 278.00 Active Assessment Diarrhea 787.91 Active Assessment Hepatitis C 070.70 Active Assessment Obesity 278.00 Active Medications Medication Code System Code Instructions Start Date End Date Status Dosage Lomotil [facility] [address]-79 2.5-0.025 MG Orally Four times a day December 02, 2014 1 tablet as needed Celexa [facility] [address]-81 40 MG Orally Once a day 1 tablet Ferrous Sulfate [facility] [address]-12 Orally Twice a day not defined Phenytoin Sodium Extended [facility] [address]-53 100 MG Orally at HS 5 capsules PrePLUS [facility] [address]-25 27-1 MG Orally daily not defined Depo-Provera [facility] [address]-35 150 MG/ML Intramuscular December 02, 2014 1 ml Triamcinolone Acetonide [facility] [address]-03 0.1 % not defined Colace [facility] [address]-53 100 MG Orally not defined Ibuprofen [facility] [address]-84 200 MG Orally not defined Nicotine [facility] [address]-57 21 MG/24HR Transdermal Once a day December 02, 2014 1 patch to skin Procedures Procedure Coding System Code Date Office Visit, New Pt., Level 4 CPT-4 41844 December 02, 2014 Vital Signs Date/Time: December 02, 2014 Blood Pressure Systolic 128 mm Hg Cardiac Monitoring Heart Rate 80 /min Temperature 98.0 F BMI 32.45 Index Weight 207.2 lbs Height 67 in Blood Pressure Diastolic 82 mm Hg Respiratory Rate 16 /min Results No Known Results Summary Purpose eClinicalWorks Submission
--- OUTSIDE RECORDS SUMMARY | 2016-09-14 09:15 | XMS REPORT | Continuity of Care Document ---
Author Author [facility] Organization [facility] Address Unknown Phone Unavailable Care Team Providers Care Counter Control Operator Name Role Phone DILLON WALTER M.D. Primary Care Physician [phone] Problems No known problems or medical conditions. Medications Medication Dose Route Sig Days/Qty Instructions Order Date Discontinued Date Status [None] 11/11/12 Active Sulfamethoxazole-Trimethoprim 1 Tab PO TWICE A DAY 14 Qty 11/11/12 Active Oxycodone/Acetaminophen 1 Tab PO Every 6 hours as needed 10 Qty for pain 11/11/12 11/27/13 Discontinued Social History Social History Problem Response Recorded Date/Time Smoking Status Current every day smoker 11/11/2012 10:55pm Query Response Start Date Stop Date Smoking Status Current every day smoker Hospital Discharge Instructions No hospital discharge instructions. Plan of Care Discharge Date 09/20/14 7:30pm Disposition 01 HOME, SELF-CARE Prescriptions See Medications Section Functional Status No functional status results. Allergies, Adverse Reactions, Alerts Allergen Type Severity Reaction Status Last Updated Codeine Adverse Reaction Unknown Nausea/Vomiting Active 05/06/14 Morphine Allergy Unknown Active 05/06/14 Latex Allergy Mild ITCHES, VALDEZ, BREAKSOUT Active 05/06/14 Immunizations No immunization records. Vital Signs Acute Vital Signs Vital Response Date/Time Blood Pressure 154/96 mm Hg Blood Pressure Mean 115 mm Hg Temperature (Fahrenheit) 98.2 degrees F (96.0 - 99.9) Temperature (Calculated Celsius) 36.28445 degrees C Temperature Source Oral Pulse Pulse Rate: ED 129 bpm Respiratory Rate 16 breaths per minute (10 - 20) Results Test Source Date Result Interp. Ref. Range Comments Alanine Aminotransferase (ALT/SGPT) February 05, 2009 8:13pm 90 U/L H 5 -40 COMMENTS PLEASE DRAW Albumin February 05, 2009 8:13pm 3.3 gm/dL N 3.2-5.0 COMMENTS PLEASE DRAW Albumin/Globulin Ratio February 05, 2009 8:13pm 0.8 L 1.4-2.4 COMMENTS PLEASE DRAW Alkaline Phosphatase February 05, 2009 8:13pm 110 U/L N 35-125 COMMENTS PLEASE DRAW Amylase Level May 03, 2005 3:00pm 59 U/L N 37-127 COMMENTS? ROOM 4 Anion Gap February 05, 2009 8:13pm 11.8 N 6-13 COMMENTS PLEASE DRAW Aspartate Amino Transf (AST/SGOT) February 05, 2009 8:13pm 52 U/L H 5- 40 COMMENTS PLEASE DRAW BUN/Creatinine Ratio February 05, 2009 8:13pm 17.2 COMMENTS PLEASE DRAW Basophils # (Auto) February 05, 2009 8:13pm 0.0 K/mm3 N 0-0.2 COMMENTS PLEASE DRAW Basophils (%) (Auto) February 05, 2009 8:13pm 0.4 % N 0-1 COMMENTS PLEASE DRAW Benzodiazepines Screen February 05, 2009 8:15pm Positive NEGATIVE COMMENTS ROOM 8 Bleeding Time September 14, 2014 1:00pm 7.0 MIN N 0-9 Blood Urea Nitrogen February 05, 2009 8:13pm 11 mg/dL N 8-25 COMMENTS PLEASE DRAW Calcium Level February 05, 2009 8:13pm 8.4 mg/dL N 8.2-10.6 COMMENTS PLEASE DRAW Carbon Dioxide Level February 05, 2009 8:13pm 23 mEq/L N 22-34 COMMENTS PLEASE DRAW Chlamydia/GC Amplified DNA February 05, 2009 8:21pm See separate report COMMENTS ROOM 8 Chloride Level February 05, 2009 8:13pm 106 mEq/L N 98-116 COMMENTS PLEASE DRAW Cocaine Screen February 05, 2009 8:15pm Negative NEGATIVE COMMENTS ROOM 8 Creatinine February 05, 2009 8:13pm 0.64 mg/dL L 0.9-1.6 COMMENTS PLEASE DRAW Drug Screen (T) February 05, 2009 8:15pm Positive NEGATIVE COMMENTS ROOM 8 Eosinophils # (Auto) February 05, 2009 8:13pm 0.2 K/mm3 N 0-0.8 COMMENTS PLEASE DRAW Eosinophils (%) (Auto) February 05, 2009 8:13pm 3.3 % N 0-7.0 COMMENTS PLEASE DRAW Fasting Glucose September 14, 2014 1:00pm 0 102 Globulin February 05, 2009 8:13pm 3.9 gm/dL H 2.0-3.0 COMMENTS PLEASE DRAW Glomerular Filtration Rate Calc February 05, 2009 8:13pm > 60.00 mL/min MULTIPLY RESULT BY 1.210 IF THE PATIENT IS -AMERICANUnits are mL/ min/1.73 m2 > 60 Normal kidney function 30-59 Moderately decreased kidney function 15-29 Severely decreased kidney function <15 End-stage kidney failure Glucose 1 Hour September 14, 2014 1:00pm 5100 126 Hematocrit February 05, 2009 8:13pm 35.7 % L 38.0-47.0 COMMENTS PLEASE DRAW Hemoglobin February 05, 2009 8:13pm 12.0 g/dL N 12.0-16.0 COMMENTS PLEASE DRAW Hepatitis C RNA (DNA PCR) September 14, 2014 1:00pm 612140 IU/mL () Hepatitis C RNA (PCR) log10 September 14, 2014 1:00pm 5.5 () This test is for monitoring of HCV positive patients only andshould not be used as a screening test for HCV infection. Hepatitis C RNA performed at [facility] Reference Lab, [address] [place] [address] Gelatin Powder Mixer Quinton Charles, DO Human Chorionic Gonadotropin, Qual March 18, 2008 7:47pm Negative NEGATIVE COMMENTS? Immature Blood Cells February 05, 2009 8:13pm 0.2 X10.e3/U N 0-0.4 COMMENTS PLEASE DRAW Lipase May 03, 2005 3:00pm 16 U/L N 8-57 COMMENTS? ROOM 4 Lymphocytes # (Auto) February 05, 2009 8:13pm 2.2 K/mm3 N 0.9-5.2 COMMENTS PLEASE DRAW Lymphocytes (%) (Auto) February 05, 2009 8:13pm 33.4 % N 16.0-44.0 COMMENTS PLEASE DRAW Lymphocytes (Manual) May 03, 2005 3:00pm 9.0 % L 21.0-51.0 COMMENTS? ROOM 4 Mean Corpuscular Hemoglobin February 05, 2009 8:13pm 28.7 pg N 26-33 COMMENTS PLEASE DRAW Mean Corpuscular Hemoglobin Concent February 05, 2009 8:13pm 33.6 g/dL N 31-36 COMMENTS PLEASE DRAW Mean Corpuscular Volume February 05, 2009 8:13pm 85.4 fL N 82.0-100.0 COMMENTS PLEASE DRAW Mean Platelet Volume February 05, 2009 8:13pm 8.5 fL N 7.0-11.0 COMMENTS PLEASE DRAW Monocytes # (Auto) February 05, 2009 8:13pm 0.3 K/mm3 N 0.16-1.0 COMMENTS PLEASE DRAW Monocytes (%) (Auto) February 05, 2009 8:13pm 4.4 % N 2.0-9.0 COMMENTS PLEASE DRAW Monocytes (Manual) May 03, 2005 3:00pm 2.0 % N 2.0-9.0 COMMENTS? ROOM 4 Neutrophils May 03, 2005 3:00pm 89.0 % H 42.0-75.0 COMMENTS? ROOM 4 Neutrophils # (Auto) February 05, 2009 8:13pm 3.7 K/mm3 N 1.9-8.0 COMMENTS PLEASE DRAW Neutrophils (%) (Auto) February 05, 2009 8:13pm 55.7 % N 42.0-75.0 COMMENTS PLEASE DRAW Platelet Count February 05, 2009 8:13pm 298 K/mm3 N 130-400 COMMENTS PLEASE DRAW Platelet Estimate May 03, 2005 3:00pm Normal NORMAL COMMENTS? ROOM 4 Potassium Level February 05, 2009 8:13pm 3.8 mEq/L N 3.5-5.1 COMMENTS PLEASE DRAW Random Glucose February 05, 2009 8:13pm 113 mg/dL N 65-115 COMMENTS PLEASE DRAW Red Blood Count February 05, 2009 8:13pm 4.18 M/mm3 L 4.20-5.40 COMMENTS PLEASE DRAW Red Cell Distribution Width February 05, 2009 8:13pm 13.8 % N 11.5- 14.5 COMMENTS PLEASE DRAW Sodium Level February 05, 2009 8:13pm 137 mEq/L N 133-145 COMMENTS PLEASE DRAW Total Bilirubin February 05, 2009 8:13pm 0.7 mg/dL N 0.1-1.3 COMMENTS PLEASE DRAW Total Protein February 05, 2009 8:13pm 7.2 gm/dL N 6.0-8.4 COMMENTS PLEASE DRAW Ur Tetrahydrocannabinol (THC) Scrn September 20, 2014 6:30pm Negative NEGATIVE HAS SPECIMEN BEEN OBTAINED/COLLECTED? Y Ur Tricyclic Antidepressants Screen September 20, 2014 6:30pm Negative NEGATIVE HAS SPECIMEN BEEN OBTAINED/COLLECTED? Y Urine Amorphous Sediment April 02, 2006 10:00pm Trace COMMENTS? RM 6 Urine Amphetamines Screen September 20, 2014 6:30pm Negative NEGATIVE HAS SPECIMEN BEEN OBTAINED/COLLECTED? Y Urine Appearance September 20, 2014 6:30pm Clear SOURCE: URINE, CLEAN CATCHHAS SPECIMEN BEEN OBTAINED/COLLECTED? Y Urine Bacteria September 20, 2014 6:30pm Trace /hpf H NONE SOURCE: URINE, CLEAN CATCHHAS SPECIMEN BEEN OBTAINED/COLLECTED? Y Urine Barbiturates February 05, 2009 8:15pm Positive NEGATIVE COMMENTS ROOM 8 Urine Barbiturates Screen September 20, 2014 6:30pm Negative NEGATIVE HAS SPECIMEN BEEN OBTAINED/COLLECTED? Y Urine Benzodiazepines Screen September 20, 2014 6:30pm Negative NEGATIVE HAS SPECIMEN BEEN OBTAINED/COLLECTED? Y Urine Bilirubin September 20, 2014 6:30pm Negative NEGATIVE SOURCE: URINE , CLEAN CATCHHAS SPECIMEN BEEN OBTAINED/COLLECTED? Y Urine Cannabinoids February 05, 2009 8:15pm Negative NEGATIVE COMMENTS ROOM 8 Urine Cocaine Screen September 20, 2014 6:30pm Negative NEGATIVE HAS SPECIMEN BEEN OBTAINED/COLLECTED? Y Urine Color September 20, 2014 6:30pm Yellow SOURCE: URINE, CLEAN CATCHHAS SPECIMEN BEEN OBTAINED/COLLECTED? Y Urine Drug Screen Confirmation February 05, 2009 12:00am See separate report Urine Epithelial Cells September 20, 2014 6:30pm Few /lpf SOURCE: URINE , CLEAN CATCHHAS SPECIMEN BEEN OBTAINED/COLLECTED? Y Urine Glucose (UA) September 20, 2014 6:30pm Negative NEGATIVE SOURCE: URINE, CLEAN CATCHHAS SPECIMEN BEEN OBTAINED/COLLECTED? Y Urine Human Chorionic Gonadotropin October 31, 2009 1:30pm Positive NEG ROOM/COMMENTS ROOM 8 Urine Ketones September 20, 2014 6:30pm Negative NEGATIVE SOURCE: URINE, CLEAN CATCHHAS SPECIMEN BEEN OBTAINED/COLLECTED? Y Urine Leukocyte Esterase September 20, 2014 6:30pm Negative NEGATIVE SOURCE: URINE, CLEAN CATCHHAS SPECIMEN BEEN OBTAINED/COLLECTED? Y Urine Methadone Screen September 20, 2014 6:30pm Negative NEGATIVE HAS SPECIMEN BEEN OBTAINED/COLLECTED? Y Urine Methamphetamines Screen September 20, 2014 6:30pm Negative NEGATIVE HAS SPECIMEN BEEN OBTAINED/COLLECTED? Y Urine Mucus April 02, 2006 10:00pm 1+ NEGATIVE COMMENTS?RM 6 Urine Nitrate September 20, 2014 6:30pm Negative NEGATIVE SOURCE: URINE, CLEAN CATCHHAS SPECIMEN BEEN OBTAINED/COLLECTED? Y Urine Occult Blood September 20, 2014 6:30pm 1+ H NEGATIVE SOURCE: URINE, CLEAN CATCHHAS SPECIMEN BEEN OBTAINED/COLLECTED? Y Urine Opiates Screen September 20, 2014 6:30pm Negative NEGATIVE HAS SPECIMEN BEEN OBTAINED/COLLECTED? Y Urine Phencyclidine Screen September 20, 2014 6:30pm Negative NEGATIVE HAS SPECIMEN BEEN OBTAINED/COLLECTED? Y Urine Propoxyphene Screen September 20, 2014 6:30pm Negative NEGATIVE HAS SPECIMEN BEEN OBTAINED/COLLECTED? Y Urine Protein September 20, 2014 6:30pm Negative NEGATIVE SOURCE: URINE, CLEAN CATCHHAS SPECIMEN BEEN OBTAINED/COLLECTED? Y Urine RBC September 20, 2014 6:30pm 0-1 /hpf NONE SOURCE: URINE, CLEAN CATCHHAS SPECIMEN BEEN OBTAINED/COLLECTED? Y Urine Specific [place] September 20, 2014 6:30pm 1.010 1.005-1.030 SOURCE : URINE, CLEAN CATCHHAS SPECIMEN BEEN OBTAINED/COLLECTED? Y Urine Urobilinogen September 20, 2014 6:30pm 0.2 E.U./dL 0.2-1.0 SOURCE: URINE, CLEAN CATCHHAS SPECIMEN BEEN OBTAINED/COLLECTED? Y Urine WBC September 20, 2014 6:30pm 1-3 /hpf NONE SOURCE: URINE, CLEAN CATCHHAS SPECIMEN BEEN OBTAINED/COLLECTED? Y Urine WBC Clumps December 29, 2005 1:15pm None NONE HAS SPECIMEN BEEN OBTAINED/COLLECTED? Y Urine pH September 20, 2014 6:30pm 6.0 4.5-8.0 SOURCE: URINE, CLEAN CATCHHAS SPECIMEN BEEN OBTAINED/COLLECTED? Y White Blood Count February 05, 2009 8:13pm 6.58 K/mm3 N 5.0-10.0 COMMENTS PLEASE DRAW Wound Culture Other May 13, 2009 10:50am Methicillin Resistant S Aureus Influenza Virus A & B Rapid Smear Nasopharyngeal July 07, 2005 2:09pm Urine Culture Urine,Random July 21, 2014 2:55pm Wound Culture Back December 05, 2009 12:50pm Methicillin Resistant S Aureus Procedures No known history of procedures. Encounters Encounter [facility]
--- OUTSIDE RECORDS SUMMARY | 2016-09-14 09:15 | XMS REPORT | Continuity of Care Document ---
Author Author [facility] Organization [facility] Address Unknown Phone Unavailable Care Team Providers Care Sample Taker Operator Name Role Phone DILLON WALTER M.D. Primary Care Physician [phone] Advance Directives Directive Response Recorded Date/Time Patient [...] Plan of Care Discharge Date 09/20/14 7:30pm Prescriptions See Medications Section Functional Status Query [...] F (96.0 - 99.9) Temperature (Calculated Celsius) 36.14203 degrees C Temperature (Calculated Celsius) 36.46362 degrees C (36.4 - 37.5) Temperature (Fahrenheit) [...] RNA (DNA PCR) September 14, 2014 1:00pm 424347 IU/mL () Hepatitis C RNA (PCR) log10 September 14, 2014 1:00pm 5.5 () This test is for monitoring of HCV positive patients only andshould not be used as a screening test for HCV infection. Hepatitis C RNA performed at [facility], [address] [place] [address] Emergency Department Aide Quinton Charles, DO Heroin Level September 20, [...] CATCHHAS SPECIMEN BEEN OBTAINED/COLLECTED? Y Urine Specific [place] September 20, 2014 11:00pm 1.020 1.005-1.030 HAS [...] Procedure Status Date Provider(s) completed 09/20/14 BEHZAD RINCON M.D. Encounters Encounter [facility] Date[facility] 10:[facility] Discharged Inpatient [facility] 09/20/14 5:52pm
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
--- OUTSIDE RECORDS SUMMARY | 2016-09-14 09:15 | XMS REPORT | Continuity of Care Document ---
Author Author [facility] Address Unknown Phone Unavailable Care Team Providers Care Bicycle I Assembler Name Role Phone DILLON WALTER M.D. Primary Care Physician [phone] Insurance Providers Guarantor Kaylee Torres Address [address] [place] [address] Email [email or web address] Policy Number [id number] Subscriber's Name Kaylee Torres Relationship 01 Self / Same As Patient Effective Date 15 Chief Complaint and Reason for Visit Chief Complaint STD Reason for Visit [id number] Problems Past Problems Medical Problem Onset Date Crushing injury of left foot and ankle Unknown Pelvic inflammatory disease (PID) Unknown Medications Current Home Medications Medication Dose Units Route Directions Days Qty Instructions Start Date Citalopram Hydrobromide (Celexa) 40 Mg Tab 40 Mg Oral Daily 01/07 Hydrocodone-Acetaminophen ([place]ren 5/325) 1 Tab Tab 1-2 Tab Oral Q4-6H as needed for Pain 15 Tablet 01/08/16 Hydrocodone-Acetaminophen (Warren 5/325) 1 Tab Tab 1 Tab Oral Every 8 Hours As Needed as needed for 10 Tablet 03/01/16 None 11/11/12 Norgestimate-Ethinyl Estradiol (Ortho Tri-Cyclen) Cyclen [...] Applicable Smoking Status Current every day smoker 03/01/2016 11:16am Not Applicable Not Applicable Query Response Start Date Stop Date Smoking Status Current every day smoker Hospital Discharge Instructions No hospital discharge instructions. Plan of Care Discharge Date 03/01/16 12:51pm Disposition 01 HOME, SELF-CARE Condition at Discharge Stable Instructions/Education Provided Pelvic Inflammatory Disease (ED) Prescriptions See Medication Section Referrals DILLON WALTER M.D. Address: [address] [place], [place] [id number] Additional Instructions/Education Call the ER this evening to get pending STD test results. Use Ibuprofen for mild pain and Warren for severe pain. You've already been treated for gonorrhea and chlamydia. Functional Status No functional status results. Allergies, Adverse Reactions, Alerts Allergen Type Severity Reaction Status Last Updated Codeine ([id number]) Adverse Reaction Unknown Nausea/Vomiting Active 08/15 Morphine ([id number]) Allergy Unknown Active 10/28/14 Latex ([id number]) Allergy Mild ITCHES, VALDEZ, BREAKSOUT Active 05/06/14 Immunizations Query Response on File Recorded Date/Time Hx Pneumococcal Vaccination Yes 09/23/14 11:45am Vital Signs Acute Vital Signs Vital Response Date/Time Blood Pressure 151/81 mm Hg 03/01/2016 12:37pm Blood Pressure Mean 93 mm Hg 09/21/2014 6:00am Blood Pressure Mean 104 mm Hg 03/01/2016 12:37pm Temperature (Fahrenheit) 98.3 degrees F (96.0 - 99.9) 03/01/2016 11:16am Temperature (Calculated Celsius) 36.85008 degrees C 03/01/2016 11:16am Temperature (Calculated Celsius) 36.58937 degrees C (36.4 - 37.5) 09/21/2014 6:00am Temperature (Fahrenheit) 97.9 degrees F (96.0 - 99.9) 09/21/2014 6:00am Temperature Source Oral 09/24/2014 8:41am Temperature Source Oral 03/01/2016 11:16am Pulse Pulse Rate (adult) 99 bpm (60 - 100) 09/24/2014 8:41am Pulse Rate (adult) 89 bpm (60 - 100) 09/21/2014 6:00am Pulse Rate: ED 87 bpm 03/01/2016 12:37pm Respiratory Rate 16 breaths per minute (10 - 20) 03/01/2016 12:37pm Respiratory Rate 18 bpm (10 - 20) 09/21/2014 6:00am Height (Feet) 5 ft 03/01/2016 11:16am Height (Inches) 7.0 in. 03/01/2016 11:16am Weight (Pounds) 240.0 lbs 03/01/2016 11:16am Height 5 ft 7 in 03/01/2016 11:16am Weight 240 lb 03/01/2016 11:16am Body Mass Index 37.6 kg/m^2 03/01/2016 11:16am Ambulatory Vital Signs Vital Response Date/Time Height [...] 09/14/2014 3:22pm Hepatitis C RNA (DNA PCR) 370069 IU/mL () 09/14/2014 1:00pm 09/15/2014 4:41pm Hepatitis C RNA (PCR) log10 5.5 () 09/14/2014 1:00pm 09/15/2014 4: 41pm This test is for monitoring of HCV positive patients only and should not be used as a screening test for HCV infection. Hepatitis C RNA performed at [facility], [facility] [place] [address] Rehabilitation Supervisor Quinton Charles, DO Amphetamine Level SEE SEPARATE [...] RESULT BY 1.210 IF THE PATIENT IS -MONEGASQUE Units are mL/min/1.73 m2 > 60 Normal [...] HCV Genotype II assay ([employer] [place], [place]). Test Performed by: [place] [address] Manual Tester: Justice Carolina II, M.D., Ph.D. Hepatitis C Genotype performed at [facility], [address] [place] [address] Rehabilitation Supervisor Pipo Robison MD Methicillin-Resist S.aureus DNA PCR POSITIVE H NEGATIVE 09/29/2014 2: 00pm 09/30/2014 1:26pm Staphylococcus aureus (PCR)(LAB) POSITIVE H NEGATIVE 09/29/2014 2:00pm 09/30/2014 1:26pm Urine Color YELLOW 03/01/2016 11:03/01/2016 11:43am Urine Appearance CLEAR 03/01/2016 11:03/01/2016 11:43am Urine Glucose (UA) NEGATIVE NEGATIVE 03/01/2016 11:03/01/2016 11 :43am Urine Bilirubin NEGATIVE NEGATIVE 03/01/2016 11:03/01/2016 11: 43am Urine Ketones TRACE NEGATIVE 03/01/2016 11:03/01/2016 11:43am Urine Specific [place] 1.025 1.005-1.030 03/01/2016 11:2015 11:43am Urine Occult Blood NEGATIVE NEGATIVE 03/01/2016 11:03/01/2016 11 :43am Urine pH 6.0 4.5-8.0 03/01/2016 11:03/01/2016 11:43am Urine Protein NEGATIVE NEGATIVE 03/01/2016 11:03/01/2016 11: 43am Urine Urobilinogen 0.2 E.U./dL 0.2-1.0 03/01/2016 11:03/01/2016 11 :43am Urine Nitrate NEGATIVE NEGATIVE 03/01/2016 11:03/01/2016 11: 43am Urine Leukocyte Esterase TRACE H NEGATIVE 03/01/2016 11:252015 11:43am Urine RBC 0-1 /hpf NONE 03/01/2016 11:03/01/2016 11:49am Urine WBC 3-5 /hpf NONE 03/01/2016 11:25am 03/01/2016 11:49am Urine Epithelial Cells MODERATE /lpf 03/01/2016 11:25am 03/01/2016 11 :49am Urine Bacteria TRACE /hpf H NONE 03/01/2016 11:25am 03/01/2016 11:49am Urine Mucus 2+ /lpf NONE 03/01/2016 11:25am 03/01/2016 11:49am Urine Human Chorionic Gonadotropin NEGATIVE NEGATIVE 03/01/2016 11: 25am 03/01/2016 11:42am Microbiology Results Procedure Source Organism/Result Collection Date/Time Result Date/Time Result Status Wound Culture Abdomen STAPHYLOCOCCUS AUREUS 09/29/2014 2:00pm 10/03/2014 10:00am Final Procedures No known history of procedures. Encounters Encounter Location Arrival/Admit Date Discharge/Depart Date Attending Provider Departed Emergency Room [facility] 03/01/16 11:16am 12:51pm LISANDRO DAMIAN M.D. Registered Referred [facility] 01/08/16 3:50pm JEANIE RUBIO M.D. Departed Emergency Room [facility] 01/08/16 2:15pm 3:49pm JEANIE RUBIO M.D. Office Visit [facility] 01/14/15 3:00pm RAFIQ ABDI M.D. Registered Practice [facility] 01/14/15 3:00pm RAFIQ ABDI M.D. Registered Referred [facility] 09/30/14 11:22am OTHER, DOCTOR Discharged Inpatient [facility] 09/20/14 10:53pm 09/24/14 11:40am BEHZAD RINCON M.D. Discharged Inpatient (obs) [facility] 09/20/14 5:52pm 7:30pm BEHZAD RINCON M.D. Registered Referred [facility] 09/14/14 12:52pm BEHZAD RINCON M.D. Registered Referred [facility] 09/01/14 2:16pm BEHZAD RINCON M.D. Registered Referred [facility] 07/27/14 3:01pm DILLON WALTER M.D. Registered Referred [facility] 07/22/14 1:27pm DILLON WALTER M.D. Registered Referred [facility] 02/27/14 10:17am KHUSHI NAYAK P.A-C Recent Diagnosis
--- OUTSIDE RECORDS SUMMARY | 2016-09-14 09:15 | XMS REPORT | Continuity of Care Document ---
Author Author [facility] Organization [facility] Address Unknown Phone Unavailable Allergies Active Description Code Type Severity Reaction Onset Reported/Identified Relationship to Patient Clinical Status Yes latex latex Drug Allergy Moderate BURNING, ITCHY 05/31/2010 Yes morphine morphine Drug Allergy Mild UPSET STOMACH 06/08/2015 Medications Problems Date Dx Coded Attending Type Code Diagnosis Diagnosed By 12/03/2014 Victoria Gonzalez Final 070.70 Unspecified Viral Hepatitis C without Hepatic Coma 12/03/2014 Victoria Gonzalez Final 278.00 Obesity, Unspecified 12/03/2014 Victoria Gonzalez Final 300.00 Anxiety State, Unspecified 12/03/2014 Victoria Gonzalez Final 305.1 Tobacco Use Disorder 12/03/2014 Victoria Gonzalez Final 311 Depressive Disorder, Not Elsewhere Classified 12/03/2014 Victoria Gonzalez Final 345.90 Epilepsy, Unspecified, without Mention of Intractable Epilep 12/03/2014 Victoria Gonzalez Final 787.91 Diarrhea 12/10/2014 Victoria Gonzalez Final 070.70 Unspecified Viral Hepatitis C without Hepatic Coma 12/10/2014 Victoria Gonzalez Final 278.00 Obesity, Unspecified 12/10/2014 Victoria Gonzalez Final 300.00 Anxiety State, Unspecified 12/10/2014 Victoria Gonzalez Final 305.1 Tobacco Use Disorder 12/10/2014 Victoria Gonzalez Final 311 Depressive Disorder, Not Elsewhere Classified 12/10/2014 Victoria Gonzalez Final 345.90 Epilepsy, Unspecified, without Mention of Intractable Epilep 12/10/2014 Victoria Gonzalez Final 787.91 Diarrhea Procedures Results Test Result Range URINALYSIS, ROUTINE - 06/08/15 08:45 UA LEUKOCYTE ESTERASE DIPSTICK 2+ NEGATIVE UA NITRITE DIPSTICK NEGATIVE NEGATIVE UA PROTEIN DIPSTICK 1+ NEGATIVE UA GLUCOSE DIPSTICK NEGATIVE NEGATIVE UA KETONE DIPSTICK 3+ NEGATIVE UA UROBILINOGEN DIPSTICK 2+ NORMAL UA BILIRUBIN DIPSTICK 2+ NEGATIVE UA BLOOD DIPSTICK NEGATIVE NEGATIVE UA SPECIFIC GRAVITY 1.030 1.015-1.025 UR PH 5.0 5.0-7.0 UA MICROSCOPIC - 06/08/15 08:45 UA BACTERIA 2+ NEGATIVE UA EPITHELIAL CELLS 2+ epi/hpf 0 - 1+ UA MUCUS 5+ NEG TO 1+ UA RBC 0-3 rbc/hpf 0 - 3 UA VOLUME FOR EXAM 12.0 mL (12mL STD) UA WBC 20-50 wbc/hpf 0 - 5 WBC CLUMPS PRESENT NEGATIVE UR TEST - 06/08/15 08:45 UR TEST NEGATIVE NEGATIVE URINE CULTURE - 06/08/15 08:45 Microbiology UR TEST - 03/17/16 03:23 UR TEST NEGATIVE NEGATIVE Encounters ACCT No. Visit Date/Time Discharge Status Pt. Type Provider Facility Loc./Unit Complaint [id number] 12/10/2014 08:29:00 2014 23:59:00 DIS Outpatient Victoria Gonzalez LAB LAB WORK [id number] 12/03/2014 18:29:00 2014 23:59:00 DIS Outpatient Victoria Gonzalez [facility] LAB LAB
--- OUTSIDE RECORDS SUMMARY | 2016-09-14 09:16 | XMS REPORT ---
Author Author Victoria Gonzalez Organization [employer] Address Unknown Phone Unavailable Care Team Providers Care Mechanical Pencils Assembler Name Role Phone Victoria Gonzalez CP Unavailable Allergies No Known Allergies Problems Problem Type Condition ICD-9 Code Onset Dates Condition Status Problem Epilepsy 345.90 Active Problem Depressed 311 Active Problem Acne 706.1 Active Problem Obesity 278.00 Active Problem Hepatitis C 070.70 Active Problem Anxiety 300.00 Active Problem Tobacco use 305.1 Active Medications No Known Medications Results No Known Results Summary Purpose [employer] Submission
--- OUTSIDE RECORDS SUMMARY | 2016-09-14 09:16 | XMS REPORT ---
Author Felicity Thomas Organization [employer] Address Unknown Phone Unavailable Care Team Providers Care Story Writer Name Role Phone Felicity Perez CP Unavailable Allergies No Known Allergies Problems Problem Type Condition ICD-9 Code Onset Dates Condition Status Problem Health examination of defined subpopulation V70.5 Active Problem Unspecified local infection of skin and subcutaneous tissue 686.9 Active Problem Other forms of epilepsy and recurrent seizures, without mention of intractable epilepsy 345.80 Active Problem Lumbago 724.2 Active Assessment Unspecified local infection of skin and subcutaneous tissue 686.9 Active Medications Medication Code System Code Instructions Start Date End Date Status Dosage Augmentin [facility] [address]-57 875-125 MG Orally Twice a day Apr 03, 2013 Apr 13, 2013 Active 1 tablet with food or milk Vital Signs Date/Time: Apr 02, 2013 Height 66 inches Blood Pressure Diastolic 70 mm Hg Blood Pressure Systolic 101 mm Hg Temperature 97.9 F Cardiac Monitoring Heart Rate 96 Beats per Minute Results No Known Results Summary Purpose [employer] Submission
--- OUTSIDE RECORDS SUMMARY | 2016-09-14 09:16 | XMS REPORT ---
Author Author Victoria Gonzalez Organization [employer] Address Unknown Phone Unavailable Care Team Providers Care Clinical Supervisor Name Role Phone Victoria Gonzalez CP Unavailable Allergies No Known Allergies Problems Problem Type Condition ICD-9 Code Onset Dates Condition Status Problem Epilepsy 345.90 Active Problem Depressed 311 Active Problem Acne 706.1 Active Problem Obesity 278.00 Active Problem Hepatitis C 070.70 Active Problem Anxiety 300.00 Active Problem Tobacco use 305.1 Active Medications Medication Code System Code Instructions Start Date End Date Status Dosage Lomotil [facility] [address]-75 2.5-0.025 MG Orally Four times a day December 02, 2014 1 tablet as needed Results No Known Results Summary Purpose [employer] Submission
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
--- OUTSIDE RECORDS SUMMARY | 2016-09-14 09:16 | XMS REPORT | Continuity of Care Document ---
Author Author Dina [facility] Dina Pierre [facility] Address Unknown Phone Unavailable Care Team Providers Care Stringer Up Soldering Machine Name Role Phone DILLON WALTER M.D. Primary Care Physician [phone] Insurance Providers Guarantor Kaylee Torres Address [address] [place] [address] Email [email or web address] Payer Self Pay Insurance Subscriber's Name Kaylee Torres Relationship 01 Self / Same As Patient Chief Complaint and Reason for Visit Chief Complaint Diarrhea Reason for Visit Diarrhea (acute) [id number] Problems Active Problems Medical Problem Onset Date Status Diarrhea (acute) Unknown Acute Gonorrhea Unknown Acute Lumbar strain Unknown Acute Pelvic inflammatory disease (PID) Unknown [...] Tab 40 Mg Oral Daily 01/07 Hydrocodone-Acetaminophen (Manns Choice) 1 Tab Tab 1-2 Tab Oral Q4-6H as needed for Pain 15 Tablet 01/08/16 Hydrocodone-Acetaminophen (Manns Choice) 1 Tab Tab 1 Tab Oral Every 8 Hours As Needed as needed for 10 Tablet 03/01/16 Hydrocodone-Acetaminophen (Manns Choice) 1 Tab Tab 1 Tab Oral Every 8 Hours As Needed as needed for 10 Tablet 03/29/16 Hydrocodone-Acetaminophen (Manns Choice) 5/325 Tab 1-2 Tab Oral Q4-6H as needed for Pain 15 Tablet 06/13/16 None 11/11/12 Norgestimate-Ethinyl Estradiol (Ortho Tri-Cyclen) Cyclen Tab 1 Ea Oral Daily 01/08/16 Ondansetron (Zofran Odt) 4 Mg Tab 1-2 Tab Oral Every 6 Hours As Needed as needed for Nausea 15 Tablet 06/13/16 Phenytoin Sodium (Dilantin Extended Release) 100 Mg Cap 700 Mg Oral Bedtime for Not Specified 09/24/14 Past Home Medications Medication Directions Ordered Status Oxycodone/Acetaminophen (Percocet) 1 Tab/1 Un Tab, 1 Tab Oral Every 6 Hours As Needed 11/11/12 Discontinued Sulfamethoxazole-Trimethoprim (Bactrim Ds) 1 Tab Tab, 1 Tab Oral Twice A Day 11/11/12 Discontinued Social History Social History Problem Response Recorded Date/Time Onset Date Status Hx Alcohol Use Yes 09/23/2014 8:27am Not Applicable Not Applicable Smoking Status Current every day smoker 06/13/2016 4:49pm Not Applicable Not Applicable Query Response Start Date Stop Date Smoking Status Current every day smoker Hospital Discharge Instructions No hospital discharge instructions. Plan of Care Discharge Date 06/13/16 5:39pm Disposition 01 HOME, SELF-CARE Condition at Discharge Stable Instructions/Education Provided Acute Diarrhea (GEN) Acute Low Back Pain (ED) Prescriptions See Medication Section Referrals DILLON WALTER M.D. Address: [facility] [place] [address] Additional Instructions/Education 1. Follow up with your doctor in 2-3 days. 2. Use nausea medication as needed. May also use Manns Choice as needed for pain. If diarrhea becomes more frequent, [id number] Imodium to be used as well. 3. Rest and drink plenty of fluids. 4. Return to ER if worsening pain, repetitive vomiting, or other new concerns. Functional Status No functional status results. Allergies, Adverse Reactions, Alerts Allergen Type Severity Reaction Status Last Updated Codeine ([id number]) Adverse Reaction Unknown Nausea/Vomiting Active 08/15 Morphine ([id number]) Allergy Unknown Active 10/28/14 Latex ([id number]) Allergy Mild ITCHES, VALDEZ, BREAKSOUT Active 05/06/14 Immunizations Query Response on File Recorded Date/Time Hx Pneumococcal Vaccination Yes 09/23/14 11:45am Vital Signs Acute Vital Signs Vital Response Date/Time Blood Pressure 147/89 mm Hg 06/13/2016 5:29pm Blood Pressure Mean 93 mm Hg 09/21/2014 6:00am Blood Pressure Mean 108 mm Hg 06/13/2016 5:29pm Temperature (Fahrenheit) 97.7 degrees F (96.0 - 99.9) 06/13/2016 4:49pm Temperature (Calculated Celsius) 36.42916 degrees C 06/13/2016 4:49pm Temperature (Calculated Celsius) 36.15164 degrees C (36.4 - 37.5) 09/21/2014 6:00am Temperature (Fahrenheit) 97.9 degrees F (96.0 - 99.9) 09/21/2014 6:00am Temperature Source Oral 09/24/2014 8:41am Temperature Source Oral 06/13/2016 4:49pm Pulse Pulse Rate (adult) 99 bpm (60 - 100) 09/24/2014 8:41am Pulse Rate (adult) 89 bpm (60 - 100) 09/21/2014 6:00am Pulse Rate: ED 88 bpm 06/13/2016 5:29pm Respiratory Rate 16 breaths per minute (10 - 20) 06/13/2016 4:49pm Respiratory Rate 18 bpm (10 - 20) 09/21/2014 6:00am Height (Feet) 5 ft 06/13/2016 4:49pm Height (Inches) 6.0 in. 06/13/2016 4:49pm Weight (Pounds) 200.0 lbs 06/13/2016 4:49pm Height 5 ft 6 in 06/13/2016 4:49pm Weight 200 lb 06/13/2016 4:49pm Body Mass Index 32.3 kg/m^2 06/13/2016 4:49pm Ambulatory Vital Signs Vital Response Date/Time Height [...] 09/14/2014 3:22pm Hepatitis C RNA (DNA PCR) 535245 IU/mL () 09/14/2014 1:00pm 09/15/2014 4:41pm Hepatitis C RNA (PCR) log10 5.5 () 09/14/2014 1:00pm 09/15/2014 4: 41pm This test is for monitoring of HCV positive patients only and should not be used as a screening test for HCV infection. Hepatitis C RNA performed at [facility] Reference Lab, [address] [place] [address] Crocheter Hand Quinton Charles, DO Amphetamine Level SEE SEPARATE [...] RESULT BY 1.210 IF THE PATIENT IS -[place] Units are mL/min/1.73 m2 > 60 Normal [...] HCV Genotype II assay ([employer] [place], [place]). Test Performed by: [place] [address] V/Stol Landing Signal Officer: Justice Carolina II, M.D., Ph.D. Hepatitis [place] [address] Crocheter Hand Pipo Robison MD Methicillin-Resist S.aureus DNA PCR [...] TRACE NEGATIVE 03/01/2016 11:03/01/2016 11:43am Urine Specific [place] 1.025 1.005-1.030 03/01/2016 11:2015 11:43am Urine Occult [...] Gonadotropin NEGATIVE NEGATIVE 03/01/2016 11: 03/01/2016 11:42am Microbiology Results Procedure Source Organism/Result [...] Discharge/Depart Date Attending Provider Departed Emergency Room [facility] 06/13/16 4:48pm 5:39pm JEANIE RUBIO M.D. Departed Emergency Room [facility] 03/29/16 11:54am 12:43pm LISANDRO DAMIAN M.D. Departed Emergency Room [facility] 03/01/16 11:16am 12:51pm LISANDRO DAMIAN M.D. Registered Referred [facility] 01/08/16 3:50pm JEANIE RUBIO M.D. Departed Emergency Room [facility] 01/08/16 2:15pm 3:49pm JEANIE RUBIO M.D. Office Visit [facility] 01/14/15 3:00pm RAFIQ ABDI M.D. Registered Practice [facility] 01/14/15 3:00pm RAFIQ ABDI M.D. Registered Referred [facility] 09/30/14 11:22am OTHER, DOCTOR Discharged Inpatient [facility] 09/20/14 10:53pm 09/24/14 11:40am BEHZAD IRNCON M.D. [facility] 5:52pm 7:30pm BEHZAD RINCON M.D. Registered Referred [facility] 09/14/14 12:52pm BEHZAD RINCON M.D. Registered Referred [facility] 09/01/14 2:16pm BEHZAD RINCON M.D. Registered Referred [facility] 07/27/14 3:01pm DILLON WALTER M.D. Registered Referred [facility] 07/22/14 1:27pm DILLON WALTER M.D. Registered Referred [facility] 02/27/14 10:17am KHUSHI NAYAK P.A-C Recent Diagnosis Diarrhea (acute)
[2016-09-14 09:27] VITALS: TEMP 98; Ht 170.2 cm; Wt 114.7 kg
[2016-09-14] MEDS ORDERED: SERT25TA PO (09:41)
[2016-09-14] MEDS ORDERED: AMOX500C2 PO (09:41)
[2016-09-14] MEDS ORDERED: [UNRECOGNIZED DRUG - CODE] PO (09:43)
[2016-09-14] MEDS ORDERED: ACET325T51 PO (09:43)
[2016-09-14] MEDS ORDERED: MELA1TAB8 PO (09:44)
--- NOTE | 2016-09-14 09:45 | NUR ---
VAG EXAM ASSISTED DR. SALCEDO WITH VAGINAL EXAM.
--- OUTSIDE RECORDS SUMMARY | 2016-09-14 09:47 | XMS REPORT | Continuity of Care Document ---
Author Author [facility] Organization [facility] Address Unknown Phone Unavailable Care Team Providers Care Tax Commissioner Name Role Phone DILLON WALTER M.D. Primary Care Physician [phone] Advance Directives Directive Response Recorded Date/Time Patient [...] F (96.0 - 99.9) Temperature (Calculated Celsius) 36.42377 degrees C Temperature (Calculated Celsius) 36.71838 degrees C (36.4 - 37.5) Temperature (Fahrenheit) [...] RNA (DNA PCR) September 14, 2014 1:00pm 764361 IU/mL () Hepatitis C RNA (PCR) log10 September 14, 2014 1:00pm 5.5 () This test is for monitoring of HCV positive patients only andshould not be used as a screening test for HCV infection. Hepatitis C RNA performed at [facility] Reference Lab, [address] [place] [address] Laborer Concrete Plant Quinton Charles, DO Heroin Level September 20, [...] CATCHHAS SPECIMEN BEEN OBTAINED/COLLECTED? Y Urine Specific [place] September 20, 2014 11:00pm 1.020 1.005-1.030 HAS [...] BEHZAD RINCON M.D. Encounters Encounter Location Date/Time [facility] 10:[facility] Discharged Inpatient [facility] 09/20/14 5:52pm
--- OUTSIDE RECORDS SUMMARY | 2016-09-14 09:48 | XMS REPORT | Continuity of Care Document ---
Author Author [facility] Organization [facility] Address Unknown Phone Unavailable Care Team Providers Care Tobacco Packing Machine Operator Name Role Phone DILLON WALTER M.D. Primary Care Physician [phone] Problems No known problems or medical conditions. [...] F (96.0 - 99.9) Temperature (Calculated Celsius) 36.39822 degrees C Temperature Source Oral Pulse Pulse [...] RNA (DNA PCR) September 14, 2014 1:00pm 786409 IU/mL () Hepatitis C RNA (PCR) log10 September 14, 2014 1:00pm 5.5 () This test is for monitoring of HCV positive patients only andshould not be used as a screening test for HCV infection. Hepatitis C RNA performed at [facility] Reference [facility], [address] [place] [address] Aeronautical Engineering Teacher Quinton Charles, DO Human Chorionic Gonadotropin, Qual [...] CATCHHAS SPECIMEN BEEN OBTAINED/COLLECTED? Y Urine Specific [place] September 20, 2014 6:30pm 1.010 1.005-1.030 SOURCE [...] Encounters Encounter Location Date[facility] 5:[facility]
--- OUTSIDE RECORDS SUMMARY | 2016-09-14 09:48 | XMS REPORT | Continuity of Care Document ---
Author Author [facility] Organization [facility] Address Unknown Phone Unavailable Care Team Providers Care Contact Center Associate Name Role Phone DILLON WALTER M.D. Primary Care Physician [phone] Advance Directives Directive Response Recorded Date/Time Patient [...] F (96.0 - 99.9) Temperature (Calculated Celsius) 36.57121 degrees C Temperature (Calculated Celsius) 36.47434 degrees C (36.4 - 37.5) Temperature (Fahrenheit) [...] RNA (DNA PCR) September 14, 2014 1:00pm 547609 IU/mL () Hepatitis C RNA (PCR) log10 September 14, 2014 1:00pm 5.5 () This test is for monitoring of HCV positive patients only andshould not be used as a screening test for HCV infection. Hepatitis C RNA performed at [facility] Reference Lab, [address] [place] [address] Elevator Constructor Supervisor Quinton Charles, DO Heroin Level September 20, [...] CATCHHAS SPECIMEN BEEN OBTAINED/COLLECTED? Y Urine Specific [place] September 20, 2014 11:00pm 1.020 1.005-1.030 HAS [...] M.D. Encounters Encounter Location Date/Time [facility] 10:53pm Discharged Inpatient [facility] 09/20/14 5:52pm
--- OUTSIDE RECORDS SUMMARY | 2016-09-14 09:48 | XMS REPORT | Continuity of Care Document ---
Author Author [facility] Organization [facility] Address Unknown Phone Unavailable Allergies Active [...] Status Pt. Type Provider Facility Loc./Unit Complaint [id number] 12/10/2014 08:29:00 2014 23:59:00 DIS Outpatient Victoria Gonzalez LAB LAB WORK [id number] 12/03/2014 18:29:00 2014 23:59:00 DIS Outpatient Victoria Gonzalez [facility] LAB LAB
--- NOTE | 2016-09-14 09:50 | ERPDOC ---
Departure Disposition Decision Date: Sep 14, 2016 Disposition Decision Time: 12:00 Disposition: 01 DISCHARGED HOME, SELF-CARE Impression Impression Impression: Primary Impression: Weeks of gestation: 11 weeks Qualified Codes: Z3A.11 - 11 weeks gestation of Additional Impression: Threatened miscarriage Severity: Mild Condition: Improved Seen By: Physician only Referrals: [facility] 2 Days Patient Instructions: Threatened Miscarriage (ED) Problems/Meds/Labs Reviewed?: Yes Medications reviewed and manag: Yes Follow up care ordered?: Yes Mental Status: Alert, Oriented Scripts Metronidazole (Flagyl) 500 Mg Tablet 500 MG PO Q12HR for 7 Days, #14 TAB 0 Refills Take 1 tablet, by mouth, every 12 hours. Prov: CLAUDETTE SALCEDO DO 09/14/16 Cephalexin (Keflex) 500 Mg Capsule 1 CAP PO TID for 10 Days, #30 CAP 0 Refills Prov: CLAUDETTE SALCEDO DO 09/14/16 HPI - General Medical General Chief Complaint: Female Urogenital Problems Stated Complaint: 14 WKS AND SPOTTING Time Seen by Provider: 09:24 Source: patient Exam Limitations: no limitations HPI - General Medical Initial Comments 31-year-old female presents to the emergency department with a chief complaint of pelvic cramping and spotting which began 1 day ago. Patient was at home when she noted onset of light pink spotting. Patient is . She denies any trauma or injury. Patient states that the spotting has resolved this morning after being persistent last night. She notes low pelvic cramping. Cramping is mild in nature. No radiation. Patient denies any other complaints or associated symptoms. She was at home when her symptoms began. Symptoms have resolved prior to arrival to the emergency department without intervention. She notes that she has not been seen or evaluated by TIMBER MANAGEMENT ASSISTANT for this . Patient presents to the emergency department from the [facility] Facility for further evaluation and treatment of . Occurred At: home Onset: other (Resolved. ) Allergies: Coded Allergies: morphine (Verified Allergy, Intermediate, DYSPNEA, 09/14/16) latex (Verified Allergy, Mild, RASH, 09/14/16) Dairy (Verified Allergy, Unknown, 09/14/16) codeine (Verified Allergy, Unknown, 09/14/16) Past History Past Medical History Neurological: seizures Surgical History Reproductive/: Family History Family History: Negative Social History Smoking Status: Never smoker Substance Use Type: does not use Alcohol Intake: none Review of Systems Constitutional Constitutional: DENIES: chills, fever Eyes General: DENIES: erythema, exudate Lids/Accessories: DENIES: erythema, swelling Vision: DENIES: blurring, night blindness ENMT Ears: DENIES: drainage, pain Hearing: DENIES: hearing loss Balance: DENIES: ataxia, falling to one side Sinuses: DENIES: congestion, pain Nose: DENIES: nosebleeds, pain Mouth/Throat: DENIES: painful swallowing, sore throat Teeth: DENIES: pain Jaw: DENIES: pain Cardiovascular Cardiac: DENIES: chest pain, dyspnea on exertion Rhythm/Rate: DENIES: irregular beat, palpitations Vascular: DENIES: pedal edema, unilateral swelling Pulmonary Respiratory: DENIES: cough, dyspnea, pleuritic chest pain, sputum GI Upper Abdomen: DENIES: nausea, pain, vomiting Lower Abdomen: DENIES: diarrhea, pain General: DENIES: dysuria, frequency Musculoskeletal General: DENIES: joint pain, tenderness Integumentary Skin: DENIES: itching, rash Neurological General: DENIES: headache, numbness, weakness Psychiatric Psychiatric: DENIES: emotional instability, suicidal ideation/attempt Endocrine Endocrine: DENIES: polydipsia, polyphagia Hematologic/Lymphatic Hematologic/Lymphatic: DENIES: frequent nosebleeds, lymphadenopathy Allergic/Immunological Allergic/Immunoligical: DENIES: allergic reactions, hives Physical Exam General General Nourishment: well nourished, well developed, appears stated age, no acute distress, adult General Body Habitus: well groomed Vitals and Pain First Documented Vital Signs Date Time Temp Pulse Resp B/P Pulse Ox O2 Delivery O2 Flow Rate FiO2 09/14/16 09:27 98.0 89 20 128/80 97 Room Air Weight: Kilograms: 114.700 Height (feet): 5 Height (inches): 7.00 Triage Pain Scale: RN VS reviewed by Provider: Yes Normal Exams: Head: Normocephalic w/o trauma Eyes: Pupils are PERRLA w/ EOMI, No scleral icterus, irritation, or foreign bodies noted ENMT: No facial trauma, nasal exudates, pharyngeal erythema, or exudates are noted Dental: No fractured, loose, or missing teeth noted Neck: Full range of motion, without adenopathy, JVD, bruits or thyromegaly Chest/Resp: Clear all gunderson, with good airflow, and symmetry bilaterally CV: Regular rate and rhythm, without murmur or gallop, Pulses 2+ all extremities, capillary refill, <2 seconds all ext., no pedal edema noted Abdomen: Bowel sounds positive, soft, non-tender, non-distended, no hepatosplenomegaly, masses or bruits noted Lymphatic: No lymphadenopathy, or lymphedema noted Musculoskeletal: No tenderness, or deformity noted, good range of motion, all extremities Integumentary: No rashes, hives, or bruising noted, hair and nails, without abnormality Neurologic: Patient is alert, and oriented, cranial nerves, motor/sensory/ cerebellar, exams w/o gross deficits, to observation Psychiatric: Patient exhibits, appropriate attention, emotion and affect Abdomen (brief) Comments Pelvic Exam - Normal external exam. cervical os is closed. No CMT. No adenexal tenderness or masses. Normal uterus. No bleeding or abnormal discharge noted. NO CVAT Differential Diagnoses Considering: UTI, Other (, Threatened Miscarriage, Miscarriage.) Progress Results/Orders Orders Procedure Category Date Status Time Cbc W/Auto LAB 09/14/16 Complete Diff-Reflex Manual Cmp - Comprehensive LAB 09/14/16 Complete Metabolic Lipase LAB 09/14/16 Complete LAB 09/14/16 Complete Qualitative, Serum 09:31 Abo/Rh Type BBK 09/14/16 Complete 09:31 Microscopic Exam (Wet [facility] 09/14/16 In Process Prep-Gena 09:31 Gc - Chlamydia Pcr LAB 09/14/16 Complete 09:31 Genital Culture BINH 09/14/16 In Process W/Gram Stain 09:31 UA, LAB 09/14/16 Complete Dip&Micro(Complete) & 09:47 Normal Saline (Normal PHA 09/14/16 Complete Saline Iv) 10:15 Hcg-Quantitative LAB 09/14/16 Complete Us Ob Complete < 14 US 09/14/16 Resulted WKS Lab Results Laboratory Tests Test 09/14/16 09:47 09/14/16 09:55 Urine Collection Type Cleancatch-midstream Urine Color Yellow Urine Turbidity Clear Urine pH 7.0 Urine Specific [place] 1.010 Urine Protein Negative Urine Glucose (UA) Negative Urine Ketones Negative Urine Blood Negative Urine Nitrite Negative Urine Bilirubin Negative Urine Urobilinogen 0.2EU/DL Urine Leukocyte Esterase 2+ Urine RBC None seen/HPF Urine WBC 3-5/HPF Urine Squamous Epithelial Cells 5-10 Urine Bacteria Trace Urine Culture Indicated Cult not indicated Chlamydia trachomatis DNA (PCR) Negative N. gonorrhoeae DNA Specimen Source Cervical/vaginal Neisseria gonorrhoeae DNA (PCR) Negative White Blood Count 14.5T/MM3 Red Blood Count 4.22M/MM3 Hemoglobin 12.2GM/DL Hematocrit 36.6% Mean Corpuscular Volume 86.7UM3 Mean Corpuscular Hemoglobin 28.9UUG Mean Corpuscular Hemoglobin Concent 33.3GM/DL RDW Standard Deviation 45.9FL Platelet Count 301T/MM3 Mean Platelet Volume 9.0UM3 Immature Granulocyte % (Auto) 0.3% Neutrophils (%) (Auto) 68.8% Lymphocytes (%) (Auto) 22.4% Monocytes (%) (Auto) 5.5% Eosinophils (%) (Auto) 2.9% Basophils (%) (Auto) 0.1% Absolute Immature Granulocyte (auto 0.04T/MM3 Absolute Neutrophils (auto) 10.0T/MM3 Absolute Lymphocytes (auto) 3.2T/MM3 Absolute Monocytes (auto) 0.8T/MM3 Absolute Eosinophils (auto) 0.4T/MM3 Absolute Basophils (auto) 0.0T/MM3 Turbidity < 20 Sodium Level 139MEQ/L Potassium Level 4.0MEQ/L Chloride Level 106MEQ/L Carbon Dioxide Level 22MEQ/L Anion Gap 11MEQ/L Blood Urea Nitrogen 9.0MG/DL Creatinine 0.5MG/DL Glomerular Filtration Rate Calc 145 BUN/Creatinine Ratio 18RATIO Glucose Level 80MG/DL Calculated Osmolality 266MOSM/KG Calcium Level 9.0MG/DL Total Bilirubin 0.50MG/DL Icterus Index < 2 Aspartate Amino Transf (AST/SGOT) 27U/L Alanine Aminotransferase (ALT/SGPT) 39U/L Alkaline Phosphatase 93U/L Total Protein 7.1G/DL Albumin 3.3G/DL Globulin 3.8G/DL Albumin/Globulin Ratio 0.9RATIO Lipase 61U/L Human Chorionic Gonadotropin, Qual Positive Beta HCG, Quantitative 13474gXE/mL Chemistry Specimen Hemolysis < 15 Medications Current ED Medications Sodium Chloride (Normal Saline IV) 1,000 ml @ 999 mls/hr Q1H1M ONCE IV Last administered on 4/13/17at 11:01; Start 09/14/16 at 10:15; Stop 09/14/16 at 11:15 ; Status DC Progress Progress Labs / imaging were discussed in detail with the patient and family and questions are answered. Patient declines offered analgesic pain medication in the emergency department. She is given IV hydration. Patient is instructed to stop the amoxicillin and provided with prescriptions for Keflex and Flagyl. Patient is discharged home in improved condition. Patient is to follow up as instructed. Patient is to return to the emergency Department if her condition worsens or changes in any manner. Patient is in agreement with the current plan of management. She is to follow-[facility] as [facility] for further evaluation and treatment of . Patient and family verbalized agreement and understanding. She is to use Tylenol as needed for pain control. Ultrasound US : Ultrasound: Pelvis US (IUP. HR 155 bpm. possible small subchorionic hemorrhage. otherwise unremarkable. ) CLAUDETTE SALCEDO DO Sep 14, 2016 09:50
--- NOTE | 2016-09-14 10:00 | NUR ---
IVL IV LOCK STARTED ON SECOND ATTEMPT AND BLOOD DRAWN FOR LAB.
[2016-09-14 10:03] LABS: BLOOD, URINE NEGATIVE (NEGATIVE); COLOR,URINE YELLOW (YELLOW); LEUKOCYTE ESTERASE ,URINE 2+ (NEGATIVE); NITRITE,URINE NEGATIVE (NEGATIVE); UROBILINOGEN,URINE 0.2 EU/DL (NORMAL)
[2016-09-14 10:03] LABS: BASOPHILS % (AUTO) 0.1 % (0-2); EOSINOPHILS # (AUTO) 0.4 T/MM3 (0-0.5); EOSINOPHILS % (AUTO) 2.9 % (0-4); HCT - HEMATOCRIT 36.6 % (36-46); HGB - HEMOGLOBIN 12.2 GM/DL (12-16); IMMATURE GRANULOCYTE # (AUTO) 0.04 T/MM3 (0.00-0.03); IMMATURE GRANULOCYTE % (AUTO) 0.3 % (0.0-0.5); LYMPHOCYTES # (AUTO) 3.2 T/MM3 (1-4.8); LYMPHOCYTES % (AUTO) 22.4 % (23-45); MEAN CORPUSCULAR HGB 28.9 UUG (26-34); MEAN CORPUSCULAR HGB CONC(MCHC 33.3 GM/DL (31-37); MEAN CORPUSCULAR VOLUME 86.7 UM3 (80-100); MONOCYTES # (AUTO) 0.8 T/MM3 (0-0.8); MONOCYTES % (AUTO) 5.5 % (0-9.0); NEUTROPHILS % (AUTO) 68.8 % (33-66); RED BLOOD COUNT 4.22 M/MM3 (4.00-5.20); WBC - WHITE BLOOD COUNT 14.5 T/MM3 (4.5-11.0)
--- NOTE | 2016-09-14 10:05 | NUR ---
FHT UNABLE TO HEAR FHT'S AT THIS TIME.
--- NOTE | 2016-09-14 10:10 | NUR ---
US ULTRASOUND IN ROOM TO DO US.
[2016-09-14 10:11] LABS: ALBUMIN 3.3 G/DL (3.5-5.0); ALBUMIN/GLOBULIN RATIO 0.9 RATIO (1.1-2.2); ALKALINE PHOSPHATASE 93 U/L (38-126); ALT (SGPT) 39 U/L (9-52); ANION GAP 11 MEQ/L (5-15); AST (SGOT) 27 U/L (14-36); BUN/CREATININE RATIO 18 RATIO (6-26); CHLORIDE 106 MEQ/L (98-107); CO2 - CARBON DIOXIDE 22 MEQ/L (22-30); CREATININE 0.5 MG/DL (0.7-1.2); GLOMERULAR FILTRATION RATE 145; GLUCOSE 80 MG/DL (65-110); LIPASE 61 U/L (23-300); SODIUM 139 MEQ/L (134-144); TOTAL PROTEIN 7.1 G/DL (6.3-8.2)
[2016-09-14 10:13] LABS: BACTERIA,URINE TRACE (NEGATIVE); RBC,URINE NONE SEEN /HPF (0-3)
[2016-09-14] MEDS ORDERED: NORMAL SALINE 1,000 ML IV ONE (10:15)
--- NOTE | 2016-09-14 10:50 | DI ---
Indication: ITS.REASON: Intermittent vaginal bleeding PROCEDURE: US OB COMPLETE < 14 WKS: Age by LMP is 12 weeks and 0 days. This correlates to an DARYA of March 29, 2017. Comparison: None Technique: Transabdominal and transvaginal sonographic pelvic imaging was performed. Findings: Imaging demonstrates a single living intrauterine gestation. The appearance of the embryo and gestation is normal for the first trimester. There is a 1.3 x 1.2 x 1.4 cm hypoechoic area adjacent to the gestational sac in the superior aspect of the uterus. cardiac activity was detected at a rate of 155 bpm. Both ovaries were identified and appear normal. The left measures 2.4 x 1.5 x 2.1 cm, and the right 2.2 x 1.8 x 2.3 cm. No abnormal adnexal mass. No free fluid. biometry: [place] rump length 4.43 cm: 11 weeks and 2 days. Impression: 1. Single living intrauterine gestation with estimated gestational age of 11 weeks and 2 days by ultrasound. This correlates to an DARYA of April 03, 2017. 2. Possible small subchorionic hemorrhage. .
--- NOTE | 2016-09-14 11:01 | NUR ---
IV FLUID IV FLUID BOLUS STARTED. PT. RESTING COMFORTABLY AND NO NEEDS AT THIS TIME.
[2016-09-14] MEDS ORDERED: METR500T PO (12:10)
[2016-09-14] MEDS ORDERED: CEPH-583 PO (12:10)
--- NOTE | 2016-09-14 12:10 | NUR ---
STATUS PT. RESTING COMFORTABLY. NO CHANGE IN CONDITION. REQUEST SOMETHING TO EAT BUT WANTS ME TO HOLD OFF. PT. INFORMED OF THIS.
--- NOTE | 2016-09-14 13:25 | NUR ---
DISMISSAL NOTE DISMISSAL INSTRUCTIONS GIVEN TO PT. AND ON FURTHER QUESTIONS. CRACKERS AND PEANUT BUTTER GIVEN TO PT. PER HER REQUEST DUE TO SEVERE HUNGER. NO VAGINAL BLEEDING WHILE IN ED. RX FOR KEFLEX AND FLAGYL SENT HOME WITH PT. PT. LEFT ED AMBULATORY WITH FRIEND.
[2016-09-14 14:06] VITALS: BP 131/71; PULSE 88; RESP 18; O2SAT 96
== END 2016-09-14 13:25 | disposition home or self-care (01) ==
LOC: ED 09:10
DX: O20.0 Threatened abortion (principal); Z3A.11 11 weeks gestation of pregnancy
CPT/HCPCS: 80053; 81001; 83690; 84702; 84703; 85025; 86900; 86901; 87070; 87205; 87210; 87220; 87491; 87591